=== PATIENT | female | born 2000 | race Caucasian/White ===

== ENCOUNTER 2024-09-30 16:35 | Inpatient (IN) ==
--- NOTE | 2024-09-30 16:56 | Emergency Department Note ---
Impression & Plan Depression with suicidal ideation, Superficial abrasion ED Provider Note NAME: DANIEL CARDENAS AGE: 24 SEX: F : 2000 ARRIVES VIA: Ambulance INFORMANT: Patient, ED PROVIDER(S): Corey Peter DO CHIEF COMPLAINT: Mental health evaluation HPI: The patient is a 24-year-old female who presented to the emergency department directly from her therapist office. The patient has been having problems with depression as well as suicidal ideation recently. She voiced some suicidal ideation to her therapist last week. She contracted for safety. Over the weekend she had some issues. She did make a suicide letter and had a plan to overdose on pills. She did not do that but she also did not call crisis. Because of this her therapist sent her to the emergency department for further evaluation. The patient's been having some problems with cutting as well over the last 48 hours. At this time she states she still has thoughts of hurting himself but states that she feels safe. The patient denies having any fever or cough. She denies having any nausea or vomiting. ROS: See above HPI for pertinent positives & negatives. A total of 10 systems reviewed and were otherwise negative. PAST MEDICAL HISTORY: See Below PAST SURGICAL HISTORY: See Below FAMILY HISTORY: See Below SOCIAL HISTORY: See Below HOME MEDICATIONS: See Below ALLERGIES: See Below VITALS: See Below PHYSICAL EXAMINATION: GENERAL: The patient is awake and alert. She appears somewhat anxious. EYES: The conjunctivae are clear. The pupils are round and reactive. EARS, NOSE, MOUTH AND THROAT: The nose is without any evidence of any deformity. NECK: The neck is nontender and supple. RESPIRATORY: Normal respiratory effort is noted there is no evidence of wheezing rhonchi or rales CARDIOVASCULAR: Regular rate and rhythm noted there no murmurs rubs or gallops normal S1 normal S2. GASTROINTESTINAL: The abdomen is soft. Abdomen is nontender. MUSCULOSKELETAL/EXTREMITIES: There is no evidence of gross deformity full range of motion is noted in the hips and shoulders. SKIN: There are multiple linear lacerations on both upper extremities. Consistent with the patient's history of self harm. There is no full-thickness lacerations or active bleeding noted. NEUROLOGIC: Patient is awake alert and oriented x3 strength is symmetric patellar reflexes are 2+ bilaterally PSYCH: The patient makes poor eye contact. Her affect is flat. The patient continues to discuss her suicidal ideation as well as her plan. MEDICAL DECISION MAKING: The patient is a 24-year-old female who presented to the emergency department for mental health evaluation. The patient was having problems with depression as well as suicidal ideation since last week. She failed to follow her therapist plan it was sent to the emergency department for further evaluation after crisis was notified. The patient was medically cleared in the emergency department. She was reevaluated multiple times. I discussed patient's condition with the emergency department mental health case loader operator Triage Nursing notes reviewed. Prior medical records reviewed Vital Signs: reviewed and remarkable for no significant abnormalities Differential diagnosis: Mood disorder, infection, hypoglycemia, electrolyte abnormalities, cardiac sources, intracerebral event, toxicologic, trauma, neurologic, as well as other pathologies. ER treatment provided: See below Diagnostics interpreted by me: ECG: none Laboratory studies: As stated above and show below. Imaging studies: See below. Consultation(s): I discussed this case with the emergency department mental-health case loader operator. The patient was evaluated by the mental health case loader operator from 3 S. She was felt to be a good candidate for voluntary inpatient treatment. 201 paperwork was signed by myself. Past Med/Surg History Problem List (Updated 09/30/24 @ 21:48 by Corey Peter DO) Superficial abrasion (Acute) Depression with suicidal ideation (Acute) Medical History (Updated 09/30/24 @ 21:48 by Corey Peter DO) Depression Social History Smoking Status: Never smoker Preferred Language: Divehi Feels Safe at Home: Yes Gender Identity: Female Allergies Allergies Allergy/AdvReac Type Severity Reaction Status Date / Time No Known Allergies Allergy Unverified 09/30/24 17:42 Home Meds Home Medications Medication Instructions Recorded Confirmed cariprazine 3 mg capsule (Vraylar) 3 mg PO HS 09/30/24 09/30/24 lithium carbonate 300 mg 300 mg PO HS 09/30/24 09/30/24 tablet,extended release topiramate 100 mg tablet 100 mg PO HS 09/30/24 09/30/24 Results & Data (ED) Vital Signs Vital Signs - 24 hr 09/30/24 16:35 09/30/24 18:50 09/30/24 21:45 Temperature 36.8 C Temperature Source Oral Pulse Rate 92 H Pulse Rate [Left Finger] 87 67 Pulse Rhythm [Left Finger] Regular Pulse Strength [Left Finger] Normal Respiratory Rate 20 20 16 Respiratory Effort / Characteristics Non-Labored Spontaneous Non-Labored Spontaneous Respiratory Depth Normal Normal Respiratory Pattern Regular Regular Blood Pressure 157/106 H Blood Pressure [Left Arm] 137/85 146/88 H Blood Pressure Mean 123 Blood Pressure Mean [Left Arm] 102 107 Blood Pressure Position [Left Arm] Sitting Pulse Oximetry 97 100 99 Oxygen Delivery Method Room Air Room Air Sepsis Recent Fever Within 48 Hours No Sepsis New/Unexplained Change in Mental Status N/A Sepsis Action Taken by Nursing No Action Required Home Medications Current Medication List: was personally reviewed by me Laboratory Data Attestation: I reviewed the patient's lab results. 09/30/24 17:19 09/30/24 17:19 Lab Results 09/30/24 09/30/24 09/30/24 Range/Units 16:54 17:19 Unknown WBC 10.17 (4.8-10.8) K/ul RBC 5.03 (4.20-5.40) M/uL Hgb 14.2 (12.0-16.0) g/dl Hct 42.3 (37.0-47.0) % MCV 84.1 (80.0-100.0) fL MCH 28.2 (25.0-34.0) pg MCHC 33.6 (32.0-36.0) g/dL RDW Std Deviation 38.6 (36.4-46.3) fL RDW Coeff of Kallie 12.7 (11.5-14.5) % Plt Count 327 (130-400) K/uL MPV 9.9 (9.4-12.4) fL Immature Gran % (Auto) 0.2 % Neut % (Auto) 80.5 % Lymph % (Auto) 14.8 % [place] % (Auto) 4.1 % Eos % (Auto) 0.2 % Baso % (Auto) 0.2 % Neut # (Auto) 8.18 H (1.40-6.50) K/uL Lymph # (Auto) 1.51 (1.20-3.40) K/uL [place] # (Auto) 0.42 (0.11-0.59) K/uL Eos # (Auto) 0.02 (0.00-0.50) K/uL Baso # (Auto) 0.02 (0.00-0.20) K/uL Immature Gran # (Auto) 0.02 (0.01-0.20) K/uL Sodium 139 (136-145) mmol/L Potassium 4.1 (3.5-5.1) mmol/L Chloride 106 (98-107) mmol/L Carbon Dioxide 28 (21-32) mmol/L Anion Gap 5 (3-11) BUN 9 (6-23) mg/dl Creatinine 0.69 (0.6-1.2) mg/dl Est Cr Clr Drug Dosing 145.5 ml/min eGFR 125.76 BUN/Creatinine Ratio 13.0 (10-20) Glucose 104 H (70-99(Fasting)) mg/dl Calcium 9.3 (8.6-10.3) mg/dl Total Bilirubin 0.3 (0.2-1.0) mg/dl AST 13 (13-39) U/L ALT 16 (7-52) U/L Alkaline Phosphatase 56 (34-104) U/L Total Protein 7.5 (6.0-8.3) gm/dl Albumin 4.3 (3.4-5.0) gm/dl Globulin 3.2 (2.5-4.0) gm/dl Albumin/Globulin Ratio 1.3 (0.9-2) TSH 1.756 (0.300-4.500) uIu/ml HCG, Qual Negative (Negative) Urine Color Yellow Urine Appearance Clear (Clear) Urine pH 6.5 (4.5-7.5) Ur Specific [place] 1.020 (1.000-1.030) Urine Protein Negative (Negative) Urine Glucose (UA) Negative (Negative) Urine Ketones Negative (Negative) Urine Blood Trace-intact H (Negative) Urine Nitrite Negative (Negative) Urine Bilirubin Negative (Negative) Urine Urobilinogen Negative (Negative) Ur Leukocyte Esterase Trace H (Negative) Urine RBC 0-2 (0-2) /hpf Urine WBC 6-10 H (0-5) /hpf Ur Epithelial Cells >20 H (0-2) /hpf Urine Bacteria 1+ H (None Seen) Salicylates < 3.0 L (3.0-30) mg/dl Urine Opiates Screen Neg (Neg) Ur Methadone, Qual Neg (Neg) Urine Fentanyl Screen Neg (Neg) Acetaminophen < 3 L (10-30) ug/ml Urine Barbiturates Neg (Neg) Ur Phencyclidine (PCP) Neg (Neg) U Amphetamin/Meth Scrn Neg (Neg) MDMA (Ecstasy) Screen Neg (Neg) U Benzodiazepines Scrn Neg (Neg) [place] < 0.1 L (0.6-1.2) mmol/L Ur Cocaine Metabolite Neg (Neg) U Marijuana (THC) Screen Neg (Neg) Ethyl Alcohol mg/dL < 10.0 (<10.0) mg/dl SARS-CoV-2, RNA, NAAT NEGATIVE (NEGATIVE) Administered Medications Discontinued Medications Acetaminophen (Acetaminophen 325 Mg Tab) 650 mg PO NOW STA Stop: 09/30/24 21:52 Last Admin: 09/30/24 22:03 Dose: 650 mg Documented By: NRB Discharge Plan Visit Data Chief Complaint: Mental Health Evaluation ED Provider: Corey Peter Discharge Problem: Depression with suicidal ideation, Superficial abrasion Patient Disposition: Transfer Behavioral Health Fac Forms Stand Alone Forms: My [facility], Suicide Prevention Resources Prescriptions Prescriptions: No Action lithium carbonate 300 mg tablet extended release 300 mg PO HS topiramate 100 mg tablet 100 mg PO HS Vraylar 3 mg capsule 3 mg PO HS Referrals Referrals: [facility] [Non-Staff] -
[2024-09-30 17:12] LABS: Appearance Urine Clear (Clear); Bilirubin Urine Negative (Negative); Blood Urine Trace-intact (Negative); Color Urine Yellow; Glucose Urine UA Negative (Negative); Ketones Urine Negative (Negative); Leukocyte Esterase Urine Trace (Negative); Nitrite Urine Negative (Negative); Protein Urine Negative (Negative); Urobilinogen Urine Negative (Negative); pH Urine 6.5 (4.5-7.5)
[2024-09-30 17:33] LABS: Epithelial Cell Urine >20 /hpf (0-2)
[2024-09-30 17:34] LABS: Bacteria Urine 1+ (None Seen); RBC Urine 0-2 /hpf (0-2)
[2024-09-30 17:35] LABS: Basophils # (auto) 0.02 K/uL (0.00-0.20); Basophils % (auto) 0.2 %; Eosinophils # (auto) 0.02 K/uL (0.00-0.50); Eosinophils % (auto) 0.2 %; Hematocrit (blood only) 42.3 % (37.0-47.0); Hemoglobin 14.2 g/dl (12.0-16.0); Immature Granulocytes # (auto) 0.02 K/uL (0.01-0.20); Immature Granulocytes % (auto) 0.2 %; Lymphocytes # (auto) 1.51 K/uL (1.20-3.40); Lymphocytes % (auto) 14.8 %; Mean Corpuscular Hemoglobin 28.2 pg (25.0-34.0); Mean Corpuscular Hgb Conc 33.6 g/dL (32.0-36.0); Mean Corpuscular Volume 84.1 fL (80.0-100.0); Mean Platelet Volume 9.9 fL (9.4-12.4); Monocytes # (auto) 0.42 K/uL (0.11-0.59); Monocytes % (auto) 4.1 %; Neutrophils # (auto) 8.18 K/uL (1.40-6.50); Neutrophils % (auto) 80.5 %; Platelet Count 327 K/uL (130-400); RDW Coefficient of Variation 12.7 % (11.5-14.5); RDW Standard Deviation 38.6 fL (36.4-46.3); Red Blood Count 5.03 M/uL (4.20-5.40); White Blood Count 10.17 K/ul (4.8-10.8)
[2024-09-30 17:40] LABS: Amphetamines+Metham, Urine Neg (Neg); Barbiturates, Urine Neg (Neg); Benzodiazepine, Urine Neg (Neg); Cocaine, Urine Neg (Neg); Fentanyl, Urine Neg (Neg); MDMA (Ecstacy), Urine Neg (Neg); Marijuana, Urine Neg (Neg); Methadone, Urine Neg (Neg); Opiate, Urine Neg (Neg); Phencyclidine, Urine Neg (Neg)
[2024-09-30 17:52] LABS: Albumin Globulin Ratio 1.3 (0.9-2); Albumin Level 4.3 gm/dl (3.4-5.0); Bilirubin,Total 0.3 mg/dl (0.2-1.0); Calcium 9.3 mg/dl (8.6-10.3); Creatinine Clr Calc Pharmacy 145.5 ml/min; Globulin 3.2 gm/dl (2.5-4.0); Potassium 4.1 mmol/L (3.5-5.1); Total Protein 7.5 gm/dl (6.0-8.3)
[2024-09-30 17:55] LABS: Pregnancy Test, Serum Negative (Negative)
[2024-09-30 17:59] LABS: Lithium < 0.1 mmol/L (0.6-1.2)
[2024-09-30 18:03] LABS: Acetaminophen < 3 ug/ml (10-30); Salicylate < 3.0 mg/dl (3.0-30)
[2024-09-30 18:06] LABS: Thyroid Stimulating Hormone 1.756 uIu/ml (0.300-4.500)
[2024-09-30] MEDS: ACETAMINOPHEN 325 MG TAB PO STA (22:03)
[2024-10-01] MEDS ORDERED: ALUMINUM/MAGNESIUM SUSP 30 ML UDC PO PRN (01:36)
[2024-10-01] MEDS ORDERED: ACETAMINOPHEN 325 MG TAB PO PRN (01:36)
[2024-10-01] MEDS ORDERED: BISMUTH SUBSALICYLATE 262 MG CHEW PO PRN (01:36)
[2024-10-01] MEDS ORDERED: MAGNESIUM HYDROXIDE SUSP 30 ML UDC PO PRN (01:36)
[2024-10-01] MEDS ORDERED: SODIUM CHLORIDE 0.65% NA SOLN 45 ML (OCEAN) PRN (01:36)
[2024-10-01] MEDS: hydrOXYzine HCl 25 MG TAB PO PRN (01:54)
--- NOTE | 2024-10-01 09:08 | History & Physical ---
Date of Service October 01, 2024 Impression / Recommendations Impression KRISTOPHER CARDENAS is a 24-year-old woman who currently lives in [place] with her uncle, has a history of borderline personality disorder, depression, anxiety, PTSD, bipolar disorder and disordered eating, and was admitted on 10/01/24 00:57 on a 201 voluntary commitment for SI via overdose [place] a secluded [place]. Diagnostically consistent with major depressive disorder vs bipolar affective disorder current depressive episode (but less likely given no consistent history of loida/hypomania) as well as eating disorder binge/purge and restricting pattern and borderline personality disorder and PTSD by history. Discussed medication treatment options in detail. Discussed risks, benefits and alternatives. She wants to continue with Topimax for mood stabilization and off- label to reduce risk for antipsychotic-induced weight gain, [place] for depression augmentation and mood stabilization and Vraylar for mood stabilization. She consents to starting clonidine for off-label use for insomnia/PTSD symptoms and anxiety. She will consider options for depression treatment including fluoxetine vs Cymbalta vs Trintellix. Wellbutrin contraindicated given her history of binge-purging which increases risk for seizures. Reviewed side effects including but not limited to: low BP/syncope with clonidine; sedation with Topimax; movement (TD, NMS), cardiac (QTc prolongation), and metabolic (stroke, insulin resistance) and necessity for fasting lipid and glucose labwork and AIMS done with score of 0 with Vraylar and TSH, Cr, electrolytes, LFTs, CBC with platelets reviewied for ongoing use of [place] and reviewed risks of dehydration, renal, thyroid, cardiac, drug interactions (NSAIDs, ACEIs, angiotensin receptor antagonists, risks). MNPR-malodorous; encourage shower and self-care & nystatin powder ordered Overall I spent a total of 80 minutes for this admission including review of chart records, review of labwork, direct evaluation of the patient, counseling the patient, ordering medication, risk assessment, discussion with the psychiatric liason RN and documentation in the electronic health record. (1) Depression with suicidal ideation: (2) Borderline personality disorder: (3) Bipolar disorder: (4) Eating disorder, unspecified: (5) Post traumatic stress disorder (PTSD): (6) GERMAINE (generalized anxiety disorder): Plan 10/01/2024: The patient was admitted to the [facility] (locked inpatient mental health unit) on q15 min checks (behavioral with suicide precautions) for safety. The patient will participate in group, recreational, and milieu therapies and will be offered additional individual and family sessions as clinically appropriate. -Start clonidine 0.1mg HS -Continue prior to admission medications: * [place] carbonate SR 300mg HS * Vraylar 3mg HS (consider dose increase) * Topamax 100mg HS (consider dose increase) -Consider SSRI vs SNRI vs Trintellix vs optimization of doses of current medications after review of symptom questionnaires -Counter Pocket Sewer consult due to pattern of restriction and binge/purging -Symptom Questionnaires: Mood Disorder Q, Alejandra BPD, GERMAINE-7, PHQ-9, VICTORIA Inventory Assets Strengths: supportive relationships, willing to get treatment Needs: safety and stabilization, medication adjustment, additional coping skills, increased outpatient services Suicide Risk Level Suicide Risk Level: High-Moderate (q15 min suicide checks) (Si with plan and intent prior to admission and depression symptoms, but feels safe in the hospital and feels able to alert staff if she needs more support) Risk Factors Assessment Male: No : Yes Do You Have Access To A Gun?: No Health Problems: No Mental Health Diagnoses: Yes Substance Use Disorders: No Previous Attempt: Yes Family History of Suicide: Yes Previous Psychiatric Hospitalization: Yes Hopelessness: Yes Protective Factors Assessment Employed: Yes Good Rapport with Provider: Yes Psychiatric History Identifying Data KRISTOPHER CARDENAS is a 24-year-old woman who currently lives in [place] with her uncle, has a history of borderline personality disorder, depression, anxiety, PTSD, bipolar disorder and disordered eating, and was admitted on 10/01/24 00:57 on a 201 voluntary commitment for SI via overdose on a secluded trail. Chief Complaint "I had set a date to for my birthday but decided to move it up". History of Present Illness Kristopher presents for psychiatric admission at the recommendation of her outpatient therapist for worsening depression and suicidal ideation with plan and intent to take an overdose of old prescriptions on a secluded trail near her old home where she is confident she would not be found for a long time. She had planned to this past weekend but then stayed alive due to "promising my therapist I would keep trying to live". When she saw her therapist on Monday she told her "I didn't know how much more I could take". Her therapist then told her she needed to the go to the hospital and "I had no choice, otherwise she said she'd 302 me". She reports a long history of self-harm via cutting but this has escalated recently to the point that while cutting this weekend she felt ambivalent about the risk of cutting too deep and possibly dying. She reports some stressors including the recent of her uncle's mother two weeks ago, a long work commute, and longstanding mental health challenges but denies any specific precipitants to her increased SI in the last few days. She reports a worsening of depressive symptoms over the past 2 weeks, She has been experiencing significant difficulty with motivation and low energy, causing her to miss work recently and has not been attending to self-care/hygiene. She's been isolating and reports anhedonia, hopelessness, helplessness, poor sleep, low appetite (hardly eating) and low self-worth. She has a long history of chronic intermittent SI for "as long as I can remember" but this also intensified over the last 2-3 days to the point she felt she would act on her plan and "moved it up" from previously wanting to on her birthday in the fall. She also reports longstanding difficulties with eating and appetite, stating she has struggled with eating since elementary school due to bullying and body image issues. She often restricts and will sometimes purge after eating. She endorses anxiety symptoms including panic attacks and severe functional anxiety. She also reports symptoms consistent with PTSD. She is currently prescribed Vraylar, Topamax, and [place] (300mg). She reports that the medications are not particularly helpful but possibly help a bit with her mood. She's been on them all for at least 2-3 months. A higher dose of Lit hium (900mg) previously caused increased aggression and lethargy so she is unwilling to make any dose adjustments to this. She has tried numerous medications in the past, including Zoloft, Lexapro, Effexor, Cymbalta, and Wellbutrin, but does not recall their effectiveness/side effects or why they were stopped. Psychiatric ROS notable for possible history of hypomania but seems like potentially more consistent with borderline personality disorder with mood lability. Denies any history of psychosis, OCD. No current symptoms of loida or psychosis reported. Past Psychiatric History Current Psychiatric Diagnosis: Bipolar, PTSD, Depression, Anxiety, Borderline Personality Disorder Outpatient Services: [facility] for therapy CM via [facility] Previous Psych Admissions: [facility] in Jul 2024 Do You Have Access To A Gun?: No History of Previous Suicide Attempt: Yes (10-11 prior attempt) Describe Attempts in the Past: most recently in Jul 2024 attempted to jump from bridge Past Medication Trials: Depakote Zoloft Trazodone Buspar Tegretol Wellbutrin Latuda Doxepin Prazosin Naltrexone -hx Seroquel (anaphylaxis) Past Head Trauma/Neuro History History of Concussion/Seizure: No Allergies Allergy/AdvReac Type Severity Reaction Status Date / Time quetiapine [From Seroquel] Allergy Severe Anaphylaxis Unverified 10/01/24 05:42 Influenza Virus Vaccines Allergy Mild Hives Unverified 10/01/24 05:42 Home Medications Medication Instructions Recorded Confirmed Type cariprazine 3 mg capsule (Vraylar) 3 mg PO HS 09/30/24 09/30/24 History lithium carbonate 300 mg 300 mg PO HS 09/30/24 09/30/24 History tablet,extended release topiramate 100 mg tablet 100 mg PO HS 09/30/24 09/30/24 History Family History Family History of: Depression, Anxiety and Suicide Completion (cousin) Family Mental Health History Comment: Mom- depression, anxiety Alcohol History Hx of Alcohol Use Over the Past 12 Months: No (2x per year. 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 Marital Status: Single Beliefs That Will Affect Care: None Current Legal Problems: No Hx Legal Problems: No Hx Traumatic Life Events: Yes Patient History Medical History Depression Social History Smoking Status: Never smoker Preferred Language: Icelandic Communication Ability: Effective Bridge Welder Required: No Beliefs That Will Affect Care: None Feels Safe at Home: Yes Gender Identity: Female Assistive Devices: Glasses Review of Systems Review of Systems: All systems reviewed & are unremarkable except as noted in HPI & below Physical Exam Psychiatric: Orientation: alert and oriented x 3 Apperance: appropriately dressed and + disheveled (malodorous ) Eye Contact: + fair eye contact Motor Behavior: no abnormal motor movements Speech: normal rate/rhythm/volume of speech (brief) Affect: + depressed affect and + blunted affect Mood: + depressed mood and + anxious mood Thought Process: goal directed thought process and + concrete thought process Thought Content: reality based without delusions, + hopelessness and + loneliness Suicidal Thoughts: denies suicidal intent; + reports suicidal thoughts and + reports suicidal plan (none for hospital) Homicidal Thoughts: denies homicidal thoughts Hallucinations: no auditory hallucinations and no visual hallucinations Cognition: recent memory grossly intact, remote memory grossly intact, attention grossly intact and language grossly intact Estimated Intelligence: consistent with education level Insight: + limited insight Judgment: + fair judgement Vital Signs (Past 24 Hours): Last Vital Signs Temp 36.8 C 10/01/24 03:34 Pulse 75 10/01/24 03:34 Resp 20 10/01/24 03:34 BP 147/85 H 10/01/24 03:34 Pulse Ox 99 10/01/24 03:34 O2 Del Method Room Air 10/01/24 03:34 Exam Statement: A physical exam was performed in the ED by Dr. Peter for the purposes of medical clearance. I accept that physical as correct and adequate for the purposes of the inpatient physical exam. Results & Data ([facility]) Laboratory Results Laboratory Results - last 24 hr 09/30/24 09/30/24 09/30/24 16:54 17:19 Unknown WBC 10.17 RBC 5.03 Hgb 14.2 Hct 42.3 MCV 84.1 MCH 28.2 MCHC 33.6 RDW Std Deviation 38.6 RDW Coeff of Kallie 12.7 Plt Count 327 MPV 9.9 Immature Gran % (Auto) 0.2 Neut % (Auto) 80.5 Lymph % (Auto) 14.8 Gray % (Auto) 4.1 Eos % (Auto) 0.2 Baso % (Auto) 0.2 Neut # (Auto) 8.18 H Lymph # (Auto) 1.51 Gray # (Auto) 0.42 Eos # (Auto) 0.02 Baso # (Auto) 0.02 Immature Gran # (Auto) 0.02 Sodium 139 Potassium 4.1 Chloride 106 Carbon Dioxide 28 Anion Gap 5 BUN 9 Creatinine 0.69 Est Cr Clr Drug Dosing 145.5 eGFR 125.76 BUN/Creatinine Ratio 13.0 Glucose 104 H Calcium 9.3 Total Bilirubin 0.3 AST 13 ALT 16 Alkaline Phosphatase 56 Total Protein 7.5 Albumin 4.3 Globulin 3.2 Albumin/Globulin Ratio 1.3 TSH 1.756 HCG, Qual Negative Urine Color Yellow Urine Appearance Clear Urine pH 6.5 Ur Specific [place] 1.020 Urine Protein Negative Urine Glucose (UA) Negative Urine Ketones Negative Urine Blood Trace-intact H Urine Nitrite Negative Urine Bilirubin Negative Urine Urobilinogen Negative Ur Leukocyte Esterase Trace H Urine RBC 0-2 Urine WBC 6-10 H Ur Epithelial Cells >20 H Urine Bacteria 1+ H Salicylates < 3.0 L Urine Opiates Screen Neg Ur Methadone, Qual Neg Urine Fentanyl Screen Neg Acetaminophen < 3 L Urine Barbiturates Neg Ur Phencyclidine (PCP) Neg U Amphetamin/Meth Scrn Neg MDMA (Ecstasy) Screen Neg U Benzodiazepines Scrn Neg [place] < 0.1 L Ur Cocaine Metabolite Neg U Marijuana (THC) Screen Neg Ethyl Alcohol mg/dL < 10.0 SARS-CoV-2, RNA, NAAT NEGATIVE Current Inpatient Medications Current Inpatient Medications: Current Inpatient Medications Acetaminophen (Acetaminophen 325 Mg Tab) 650 mg PO Q4H PRN PRN Reason: Headache or Minor Fever Stop: 10/31/24 01:35 Al Hydrox/Mg Hydrox/Simethicone (Aluminum/Magnesium Susp 30 Ml Udc) 30 ml PO Q4H PRN PRN Reason: GI Upset Stop: 10/31/24 01:35 Bismuth Subsalicylate (Bismuth Subsalicylate 262 Mg Chew) 2 tab PO Q30M PRN PRN Reason: Loose Stool/Diarrhea Stop: 10/31/24 01:35 Hydroxyzine HCl (Hydroxyzine Hcl 25 Mg Tab) 50 mg PO HSZ PRN PRN Reason: Insomnia Stop: 10/31/24 01:35 Last Admin: 10/01/24 01:54 Dose: 50 mg Hydroxyzine HCl (Hydroxyzine Hcl 25 Mg Tab) 25 mg PO Q4H PRN PRN Reason: Anxiety Stop: 10/31/24 01:35 [place] Carbonate ([place] Carbonate Slow Rel 300 Mg Tab) 300 mg PO HS MARCEL Stop: 10/31/24 21:59 Magnesium Hydroxide (Magnesium Hydroxide Susp 30 Ml Udc) 30 ml PO DAILY PRN PRN Reason: Constipation Stop: 10/31/24 01:35 Olanzapine (Olanzapine 2.5 Mg Tab) 2.5 mg PO BID PRN PRN Reason: Agitation Stop: 10/31/24 08:59 Sodium Chloride (Sodium Chloride 0.65% Na Soln 45 Ml (Colt)) 1 - 2 sprays NA PRN PRN PRN Reason: Nasal Dryness/Congestion Stop: 10/31/24 01:35 Topiramate (Topiramate 100 Mg Tab) 100 mg PO HS MARCEL Stop: 10/31/24 21:59
[2024-10-01] MEDS ORDERED: NYSTATIN POWDER 15GM BTL EXT PRN (14:16)
[2024-10-01] MEDS: TOPIRAMATE 100 MG TAB PO SCH (21:00)
[2024-10-01] MEDS: CARIPRAZINE HCL 3 MG CAP PO SCH (21:00)
[2024-10-01] MEDS: LITHIUM CARBONATE SLOW REL 300 MG TAB PO SCH (21:01)
[2024-10-01] MEDS: cloNIDine HCL 0.1 MG TAB PO SCH (21:01)
[2024-10-01] MEDS ORDERED: LITHIUM CARBONATE SLOW REL 300 MG TAB PO SCH (22:00)
[2024-10-01] MEDS ORDERED: TOPIRAMATE 100 MG TAB PO SCH (22:00)
[2024-10-02 07:50] LABS: Estimated Average Glucose 103 mg/dl; Hemoglobin A1C 5.2 % (4.5-5.6)
[2024-10-02 08:07] LABS: Chol HDL Ratio 6.6 (0-5)
--- NOTE | 2024-10-02 09:14 | Psychiatric Progress Note ---
Date of Service October 02, 2024 Impression / Recommendations Impression DANIEL CARDENAS is a 24-year-old woman who currently lives in [place] with her uncle, has a history of borderline personality disorder, depression, anxiety, PTSD, bipolar disorder and disordered eating, and was admitted on 10/01/24 00:57 on a 201 voluntary commitment for SI via overdose [place] secluded [place]. Diagnostically consistent with major depressive disorder vs bipolar affective disorder current depressive episode (but less likely given no consistent history of loida/hypomania) as well as eating disorder binge/purge and restricting pattern and borderline personality disorder and PTSD by history. A: Ongoing depression but some lessening of SI today. She notes prominent irritability as part of her symptoms. Not eating. Ongoing behavioral activation encouragement. Discussed medication treatment options in detail. Discussed risks, benefits and alternatives. She wants to start fluoxetine. Reviewed side effects including but not limited to: GI, TIERNEY, sexual side effects, and counseled on black box warning of potential for emergence of or increased SI and need to let staff know should this occur or should they feel unsafe. Also discussed importance of seeking emergency care following discharge if this side effect occurs in the future. Labwork reviewed, notable for elevated cholesterol and low Vit D. She consents to starting supplementation. [place] level low but expected due to low dose. MNPR-requiring safety linens Overall, I spent a total of 50 minutes on this case including meeting with the patient, reviewing the chart, nursing report, multidisciplinary team meeting, orders, and documentation. (1) Depression with suicidal ideation: (2) Borderline personality disorder: (3) Bipolar disorder: (4) Eating disorder, unspecified: (5) Post traumatic stress disorder (PTSD): (6) GERMAINE (generalized anxiety disorder): Plan 10/02/2024: -Start fluoxetine 10mg daily 10/01/2024: The patient was admitted to the [facility] ([facility] health unit) on q15 min checks (behavioral with suicide precautions) for safety. The patient will participate in group, recreational, and milieu therapies and will be offered additional individual and family sessions as clinically appropriate. -Start clonidine 0.1mg HS -Continue prior to admission medications: * [place] carbonate SR 300mg HS * Vraylar 3mg HS (consider dose increase) * Topamax 100mg HS (consider dose increase) -Consider SSRI vs SNRI vs Trintellix vs optimization of doses of current medications after review of symptom questionnaires -Baffle Mounter consult due to pattern of restriction and binge/purging -Symptom Questionnaires: Mood Disorder Q, Alejandra BPD, GERMAINE-7, PHQ-9, VICTORIA Inventory Assets Strengths: supportive relationships, willing to get treatment Needs: safety and stabilization, medication adjustment, additional coping skills, increased outpatient services Suicide Risk Level Suicide Risk Level: High-Moderate (q15 min suicide checks) (Si with plan and intent prior to admission and depression symptoms, but feels safe in the hospital and feels able to alert staff if she needs more support) Risk Factors Assessment Male: No : Yes Do You Have Access To A Gun?: No Health Problems: No Mental Health Diagnoses: Yes Substance Use Disorders: No Previous Attempt: Yes Family History of Suicide: Yes Previous Psychiatric Hospitalization: Yes Hopelessness: Yes Protective Factors Assessment Employed: Yes Good Rapport with Provider: Yes Interval History Identifying Information DANIEL CARDENAS is a 24-year-old woman who currently lives in [place] with her uncle, has a history of borderline personality disorder, depression, anxiety, PTSD, bipolar disorder and disordered eating, and was admitted on 10/01/24 00:57 on a 201 voluntary commitment for SI via overdose on a secluded trail. Chief Complaint "Ok, I've been sleeping". Review of Systems Sleep Information Total Hours of Sleep: 6.5 Sleep Comments: Meal Information Percent Meal Consumed - Breakfast: 0 Percent Meal Consumed - Lunch: 0 Percent Meal Consumed - Dinner: 0 Nutrition Comment: pt. declines Subjective Subjective Patient was seen & assessed and interval progress reviewed with treatment team. In bed all day, wouldn't come out for meals. Last evening told RN she felt unsafe having her linens so now has safety linens and safety smock. Today able to transition back to normal linens and clothes. Reports her SI is less intense today still present but "I can control them". Discussed medication options and she would like to start fluoxetine. Reviewed elevated cholesterol and low Vit D. She hasn't eaten anything today but will try to eat dinner. Slept well. Fairly isolative to her room. States she continues to have a lot of "irritability and annoyance" which is atypical for her. Physical Exam Psychiatric Orientation: alert and oriented x 3 Apperance: appropriately dressed Eye Contact: + fair eye contact Motor Behavior: no abnormal motor movements Speech: normal rate/rhythm/volume of speech (brief) Affect: + depressed affect and + blunted affect Mood: + depressed mood and + anxious mood Thought Process: goal directed thought process and + concrete thought process Thought Content: reality based without delusions, + hopelessness and + loneliness Suicidal Thoughts: denies suicidal intent; + reports suicidal thoughts and + reports suicidal plan (none for hospital) Homicidal Thoughts: denies homicidal thoughts Hallucinations: no auditory hallucinations and no visual hallucinations Cognition: recent memory grossly intact, remote memory grossly intact, attention grossly intact and language grossly intact Estimated Intelligence: consistent with education level Insight: + limited insight Judgment: + fair judgement Vital Signs (Past 24 Hours) Last Vital Signs Temp 36.9 C 10/02/24 06:24 Pulse 76 10/02/24 06:24 Resp 16 10/02/24 06:24 BP 109/76 10/02/24 06:24 Pulse Ox 98 10/01/24 22:45 O2 Del Method Room Air 10/01/24 22:45 Results & Data ([facility]) Laboratory Results Laboratory Results - last 24 hr 10/02/24 06:57 Estimat Average Glucose 103 Hemoglobin A1c 5.2 Triglycerides 137 Cholesterol 232 H LDL Cholesterol, Calc 170 VLDL Cholesterol, Calc 27 HDL Cholesterol 35 Cholesterol/HDL Ratio 6.6 H 25-OH Vitamin D Total 20.2 L [place] Pending Current Inpatient Medications Current Inpatient Medications: Current Inpatient Medications Acetaminophen (Acetaminophen 325 Mg Tab) 650 mg PO Q4H PRN PRN Reason: Headache or Minor Fever Stop: 10/31/24 01:35 Al Hydrox/Mg Hydrox/Simethicone (Aluminum/Magnesium Susp 30 Ml Udc) 30 ml PO Q4H PRN PRN Reason: GI Upset Stop: 10/31/24 01:35 Bismuth Subsalicylate (Bismuth Subsalicylate 262 Mg Chew) 2 tab PO Q30M PRN PRN Reason: Loose Stool/Diarrhea Stop: 10/31/24 01:35 Cariprazine (Cariprazine Hcl 3 Mg Cap) 3 mg PO HS MARCEL Stop: 10/31/24 21:59 Last Admin: 10/01/24 21:00 Dose: 3 mg Clonidine HCl (Clonidine Hcl 0.1 Mg Tab) 0.1 mg PO HS MARCEL Stop: 10/31/24 21:59 Last Admin: 10/01/24 21:01 Dose: 0.1 mg Hydroxyzine HCl (Hydroxyzine Hcl 25 Mg Tab) 50 mg PO HSZ PRN PRN Reason: Insomnia Stop: 10/31/24 01:35 Last Admin: 10/01/24 01:54 Dose: 50 mg Hydroxyzine HCl (Hydroxyzine Hcl 25 Mg Tab) 25 mg PO Q4H PRN PRN Reason: Anxiety Stop: 10/31/24 01:35 [place] Carbonate ([place] Carbonate Slow Rel 300 Mg Tab) 300 mg PO HS MARCEL Stop: 10/31/24 21:59 Last Admin: 10/01/24 21:01 Dose: 300 mg Magnesium Hydroxide (Magnesium Hydroxide Susp 30 Ml Udc) 30 ml PO DAILY PRN PRN Reason: Constipation Stop: 10/31/24 01:35 Nystatin (Nystatin Powder 15gm Btl) 1 appln EXT BID PRN PRN Reason: itching/redness of skin Stop: 10/31/24 14:15 Olanzapine (Olanzapine 2.5 Mg Tab) 2.5 mg PO BID PRN PRN Reason: Agitation Stop: 10/31/24 08:59 Sodium Chloride (Sodium Chloride 0.65% Na Soln 45 Ml ([place])) 1 - 2 sprays NA PRN PRN PRN Reason: Nasal Dryness/Congestion Stop: 10/31/24 01:35 Topiramate (Topiramate 100 Mg Tab) 100 mg PO HS MARCEL Stop: 10/31/24 21:59 Last Admin: 10/01/24 21:00 Dose: 100 mg Mental Health & Subst Abuse Tx Therapist Name of Therapist: [facility] Post Discharge Appointments Contact Information Discharge Discharge Address: [address] [place] [address] [address], [place] [address]
[2024-10-02] MEDS: FLUoxetine HCL 10 MG CAP PO SCH (17:41)
[2024-10-02] MEDS: OLANZAPINE 2.5 MG TAB PO PRN (21:37)
--- NOTE | 2024-10-03 08:54 | Psychiatric Progress Note ---
Date of Service October 03, 2024 Impression / Recommendations Impression DANIEL CARDENAS is a 24-year-old woman who currently lives in [place] with her uncle, has a history of borderline personality disorder, depression, anxiety, PTSD, bipolar disorder and disordered eating, and was admitted on 10/01/24 00:57 on a 201 voluntary commitment for SI via overdose on a secluded trail. Diagnostically consistent with major depressive disorder vs bipolar affective disorder current depressive episode (but less likely given no consistent history of loida/hypomania) as well as eating disorder binge/purge and restricting pattern and borderline personality disorder and PTSD by history. A: Ongoing depression with hopelessness but starting to isolate less and SI more controllable during the day, worsens in the evenings. Seems yesterday was potentially prompted by feelings of low self-worth and body dysmorphia after eating some dinner. She is agreeable to switching Vraylar dosing to be with dinner to see if this lessens evening distress. She also consents to titration of fluoxetine. Appreciate washer meat consult and recommendation for outpatient nutrition counseling for disordered eating. Reviewed outpatient records, may benefit from restarting naltrexone for self- harm urges once her eating improves and GI symptoms lessen.Has been on higher doses of Vraylar recently (including 4.5mg HS) MNPR-easily overwhelmed at times, requiring safety linens at times Overall, I spent a total of 50 minutes on this case including meeting with the patient, reviewing the chart, nursing report, multidisciplinary team meeting, orders, and documentation. (1) Depression with suicidal ideation: (2) Borderline personality disorder: (3) Bipolar disorder: (4) Eating disorder, unspecified: (5) Post traumatic stress disorder (PTSD): (6) GERMAINE (generalized anxiety disorder): Plan 10/03/2024: -Increase fluoxetine to 20mg daily -Adjust dosing of Vraylar to daily with dinner 10/02/2024: -Start fluoxetine 10mg daily 10/01/2024: The patient was admitted to the [facility] ([facility] unit) on q15 min checks (behavioral with suicide precautions) for safety. The patient will participate in group, recreational, and milieu therapies and will be offered additional individual and family sessions as clinically appropriate. -Start clonidine 0.1mg HS -Continue prior to admission medications: * [place] carbonate SR 300mg HS * Vraylar 3mg HS (consider dose increase) * Topamax 100mg HS (consider dose increase) -Consider SSRI vs SNRI vs Trintellix vs optimization of doses of current medications after review of symptom questionnaires -Supervisor Soldering consult due to pattern of restriction and binge/purging -Symptom Questionnaires: Mood Disorder Q, Alejandra BPD, GERMAINE-7, PHQ-9, VICTORIA Inventory Assets Strengths: supportive relationships, willing to get treatment Needs: safety and stabilization, medication adjustment, additional coping skills, increased outpatient services Suicide Risk Level Suicide Risk Level: High-Moderate (q15 min suicide checks) (Si with plan and intent prior to admission and depression symptoms, but feels safe in the hospital and feels able to alert staff if she needs more support) Risk Factors Assessment Male: No : Yes Do You Have Access To A Gun?: No Health Problems: No Mental Health Diagnoses: Yes Substance Use Disorders: No Previous Attempt: Yes Family History of Suicide: Yes Previous Psychiatric Hospitalization: Yes Hopelessness: Yes Protective Factors Assessment Employed: Yes Good Rapport with Provider: Yes Interval History Identifying Information DANIEL CARDENAS is a 24-year-old woman who currently lives in [place] with her uncle, has a history of borderline personality disorder, depression, anxiety, PTSD, bipolar disorder and disordered eating, and was admitted on 10/01/24 00:57 on a 201 voluntary commitment for SI via overdose on [place] secluded trail. Chief Complaint "I shouldn't have ate". Review of Systems Sleep Information Total Hours of Sleep: 6.75 Meal Information Percent Meal Consumed - Breakfast: 0 Percent Meal Consumed - Lunch: 0 Percent Meal Consumed - Dinner: 25 Nutrition Comment: Subjective Subjective Patient was seen & assessed and interval progress reviewed with nursing and social work. Attended one group yesterday, ended up eating dinner with peers, did a puzzle with peers. But later on the floor of her room reporting that her medications "aren't lasting long enough" and got prn dose of olanzapine which she found effective. Today she reports ongoing negative internal thoughts about her self-image which intensify after she eats. She met with washer meat and is going to try to eat at every meal. She denies any medication side effects. Increased SI intensity in the evenings and then she will often isolate. Last night she was able to come out of her room and spend time with peers with staff support which helped her. Prior to that she was having intensifying SI and self-harm urges. Today SI present but "manageable". Attending groups today. Slightly more affect. Physical Exam Psychiatric Orientation: alert and oriented x 3 Apperance: appropriately dressed Eye Contact: + fair eye contact Motor Behavior: no abnormal motor movements Speech: normal rate/rhythm/volume of speech Affect: + depressed affect and + blunted affect Mood: + depressed mood and + anxious mood Thought Process: goal directed thought process and + concrete thought process Thought Content: reality based without delusions, + hopelessness, + worthlessness, + loneliness and + self deprecation Suicidal Thoughts: denies suicidal intent; + reports suicidal thoughts and + reports suicidal plan (none for hospital) Homicidal Thoughts: denies homicidal thoughts Hallucinations: no auditory hallucinations and no visual hallucinations Cognition: recent memory grossly intact, remote memory grossly intact, attention grossly intact and language grossly intact Estimated Intelligence: consistent with education level Insight: + limited insight Judgment: + limited judgement Vital Signs (Past 24 Hours) Last Vital Signs Temp 36.9 C 10/02/24 06:24 Pulse 91 H 10/02/24 20:08 Resp 17 10/02/24 20:07 BP 129/88 10/02/24 20:08 Pulse Ox 99 10/02/24 20:07 O2 Del Method Room Air 10/02/24 20:07 Results & Data ([facility]) Laboratory Results Laboratory Results - last 24 hr 10/02/24 06:57 [place] 0.2 L Current Inpatient Medications Current Inpatient Medications: Current Inpatient Medications Acetaminophen (Acetaminophen 325 Mg Tab) 650 mg PO Q4H PRN PRN Reason: Headache or Minor Fever Stop: 10/31/24 01:35 Al Hydrox/Mg Hydrox/Simethicone (Aluminum/Magnesium Susp 30 Ml Udc) 30 ml PO Q4H PRN PRN Reason: GI Upset Stop: 10/31/24 01:35 Bismuth Subsalicylate (Bismuth Subsalicylate 262 Mg Chew) 2 tab PO Q30M PRN PRN Reason: Loose Stool/Diarrhea Stop: 10/31/24 01:35 Cariprazine (Cariprazine Hcl 3 Mg Cap) 3 mg PO HS MARCEL Stop: 10/31/24 21:59 Last Admin: 10/02/24 20:39 Dose: 3 mg Clonidine HCl (Clonidine Hcl 0.1 Mg Tab) 0.1 mg PO HS MARCEL Stop: 10/31/24 21:59 Last Admin: 10/02/24 20:39 Dose: 0.1 mg Fluoxetine HCl (Fluoxetine Hcl 10 Mg Cap) 10 mg PO QAM MARCEL Stop: 11/01/24 16:59 Last Admin: 10/02/24 17:41 Dose: 10 mg Hydroxyzine HCl (Hydroxyzine Hcl 25 Mg Tab) 50 mg PO HSZ PRN PRN Reason: Insomnia Stop: 10/31/24 01:35 Last Admin: 10/01/24 01:54 Dose: 50 mg Hydroxyzine HCl (Hydroxyzine Hcl 25 Mg Tab) 25 mg PO Q4H PRN PRN Reason: Anxiety Stop: 10/31/24 01:35 [place] Carbonate ([place] Carbonate Slow Rel 300 Mg Tab) 300 mg PO HS MARCEL Stop: 10/31/24 21:59 Last Admin: 10/02/24 20:39 Dose: 300 mg Magnesium Hydroxide (Magnesium Hydroxide Susp 30 Ml Udc) 30 ml PO DAILY PRN PRN Reason: Constipation Stop: 10/31/24 01:35 Multivitamins/Minerals (Cerovite Adv Formula Tab) 1 tab PO QAM MARCEL Stop: 11/02/24 08:59 Nystatin (Nystatin Powder 15gm Btl) 1 appln EXT BID PRN PRN Reason: itching/redness of skin Stop: 10/31/24 14:15 Olanzapine (Olanzapine 2.5 Mg Tab) 2.5 mg PO BID PRN PRN Reason: Agitation Stop: 10/31/24 08:59 Last Admin: 10/02/24 21:37 Dose: 2.5 mg Sodium Chloride (Sodium Chloride 0.65% Na Soln 45 Ml ([place])) 1 - 2 sprays NA PRN PRN PRN Reason: Nasal Dryness/Congestion Stop: 10/31/24 01:35 Topiramate (Topiramate 100 Mg Tab) 100 mg PO HS MARCEL Stop: 10/31/24 21:59 Last Admin: 10/02/24 20:39 Dose: 100 mg Vitamin D (Cholecalciferol 25 Mcg (1000 Units) Tab) 25 mcg PO QAM MARCEL Stop: 11/02/24 08:59 Mental Health & Subst Abuse Tx Psychiatrist Name of Psychiatrist: [facility] Date Of Appointment With Psychiatric Provider: 10/09/2024 Time of Appointment with Psychiatrist: 11:15 Psychiatric Appointment Comment: Appt from 10/03 rescheduled to 10/09 Therapist Name of Therapist: [facility] in [place] Therapist's Date of Therapist Appointment: 10/07 Time of Therapist Appointment: 11:15am Ct Scan Technician Name of Ct Scan Technician: Cameron Snowden Phone Number for Ct Scan Technician: Post Discharge Appointments Primary Care Physician Name Of Family Doctor/PCP: Maureen Hess Provider Appointment Comment: Not needed at this time. Follow up as normal Contact Information Discharge Discharge Address: [facility] [address], [place] [address]
[2024-10-03] MEDS: CEROVITE ADV FORMULA TAB PO SCH (10:04)
[2024-10-03] MEDS: CHOLECALCIFEROL 25 MCG (1000 UNITS) TAB PO SCH (10:04)
[2024-10-03] MEDS: CARIPRAZINE HCL 3 MG CAP PO SCH (17:11)
[2024-10-03] MEDS: hydrOXYzine HCl 25 MG TAB PO PRN (18:18)
[2024-10-04] MEDS: FLUoxetine HCL 20 MG CAP PO SCH (08:54)
--- NOTE | 2024-10-04 09:13 | Psychiatric Progress Note ---
Date of Service October 04, 2024 Impression / Recommendations Impression DANIEL CARDENAS is a 24-year-old woman who currently lives in [place] with her uncle, has a history of borderline personality disorder, depression, anxiety, PTSD, bipolar disorder and disordered eating, and was admitted on 10/01/24 00:57 on a 201 voluntary commitment for SI via overdose [place] secluded [place]. Diagnostically consistent with major depressive disorder vs bipolar affective disorder current depressive episode (but less likely given no consistent history of loida/hypomania) as well as eating disorder binge/purge and restricting pattern and borderline personality disorder and PTSD by history. A: Ongoing depression and SI with some self-harm last evening but responds well to therapeutic interventions and attempts to use coping skills. Tolerating fluoxetine. She consents to increasing Vraylar to further target depression and as off-label use for augmentation. Ongoing behavioral activation. Eating more, may benefit from eating disorder treatment once mood symptoms are more stable. Overall, I spent a total of 35 minutes on this case including meeting with the patient, reviewing the chart, nursing report, multidisciplinary team meeting, orders, and documentation. (1) Depression with suicidal ideation: (2) Borderline personality disorder: (3) Bipolar disorder: (4) Eating disorder, unspecified: (5) Post traumatic stress disorder (PTSD): (6) GERMAINE (generalized anxiety disorder): Plan 10/04/2024: -Increase Vraylar to 4.5mg daily with dinner 10/03/2024: -Increase fluoxetine to 20mg daily -Adjust dosing of Vraylar to 3mg daily with dinner 10/02/2024: -Start fluoxetine 10mg daily 10/01/2024: The patient was admitted to the [facility] ([facility]) on q15 min checks (behavioral with suicide precautions) for safety. The patient will participate in group, recreational, and milieu therapies and will be offered additional individual and family sessions as clinically appropriate. -Start clonidine 0.1mg HS -Continue prior to admission medications: * Rangeley carbonate SR 300mg HS * Vraylar 3mg HS (consider dose increase) * Topamax 100mg HS (consider dose increase) -Consider SSRI vs SNRI vs Trintellix vs optimization of doses of current medications after review of symptom questionnaires -Manager Special Events consult due to pattern of restriction and binge/purging -Symptom Questionnaires: Mood Disorder Q, Alejandra BPD, GERMAINE-7, PHQ-9, VICTORIA Inventory Assets Strengths: supportive relationships, willing to get treatment Needs: safety and stabilization, medication adjustment, additional coping skills, increased outpatient services Suicide Risk Level Suicide Risk Level: High-Moderate (q15 min suicide checks) (Si with plan and intent prior to admission and depression symptoms, but feels safe in the hospital and feels able to alert staff if she needs more support) Risk Factors Assessment Male: No : Yes Do You Have Access To A Gun?: No Health Problems: No Mental Health Diagnoses: Yes Substance Use Disorders: No Previous Attempt: Yes Family History of Suicide: Yes Previous Psychiatric Hospitalization: Yes Hopelessness: Yes Protective Factors Assessment Employed: Yes Good Rapport with Provider: Yes Interval History Identifying Information DANIEL CARDENAS is a 24-year-old woman who currently lives in [place] with her uncle, has a history of borderline personality disorder, depression, anxiety, PTSD, bipolar disorder and disordered eating, and was admitted on 10/01/24 00:57 on a 201 voluntary commitment for SI via overdose on a secluded trail. Chief Complaint "good". Review of Systems Sleep Information Total Hours of Sleep: 6 Meal Information Percent Meal Consumed - Breakfast: 0 Percent Meal Consumed - Lunch: 25 Percent Meal Consumed - Dinner: 80 Subjective Subjective Patient was seen & assessed and interval progress reviewed with treatment team. Ate more dinner, had increased anxiety last evening and walked with counselor and then journaled. She did self-harm via scratching prior to this. Attended some groups and rated mood as "tired". Today reports her mood as "good". Struggled again last night despite early dosing of Vraylar. No side effects from fluoxetine addition. Had night terror last night and didn't sleep very well though cites fire alarm drills as potentially contributing. Eating more. SI rated as "manageable". Spending more time around peers and attending groups. Physical Exam Psychiatric Orientation: alert and oriented x 3 Apperance: appropriately dressed Eye Contact: + fair eye contact Motor Behavior: no abnormal motor movements Speech: normal rate/rhythm/volume of speech Affect: + depressed affect and + constricted affect Mood: + depressed mood and + anxious mood Thought Process: goal directed thought process Thought Content: reality based without delusions, + hopelessness, + wo rthlessness, + loneliness and + self deprecation Suicidal Thoughts: denies suicidal intent; + reports suicidal thoughts and + reports suicidal plan (none for hospital) Homicidal Thoughts: denies homicidal thoughts Hallucinations: no auditory hallucinations and no visual hallucinations Cognition: recent memory grossly intact, remote memory grossly intact, attention grossly intact and language grossly intact Estimated Intelligence: consistent with education level Insight: + limited insight Judgment: + limited judgement Vital Signs (Past 24 Hours) Last Vital Signs Temp 36.9 C 10/04/24 05:57 Pulse 65 10/04/24 05:58 Resp 17 10/04/24 05:57 BP 126/88 10/04/24 05:58 Pulse Ox 100 10/04/24 05:57 O2 Del Method Room Air 10/04/24 05:57 Results & Data ([facility]) Current Inpatient Medications Current Inpatient Medications: Current Inpatient Medications Acetaminophen (Acetaminophen 325 Mg Tab) 650 mg PO Q4H PRN PRN Reason: Headache or Minor Fever Stop: 10/31/24 01:35 Al Hydrox/Mg Hydrox/Simethicone (Aluminum/Magnesium Susp 30 Ml Udc) 30 ml PO Q4H PRN PRN Reason: GI Upset Stop: 10/31/24 01:35 Bismuth Subsalicylate (Bismuth Subsalicylate 262 Mg Chew) 2 tab PO Q30M PRN PRN Reason: Loose Stool/Diarrhea Stop: 10/31/24 01:35 Cariprazine (Cariprazine Hcl 3 Mg Cap) 3 mg PO DAILYBD [facility] Stop: 11/02/24 17:14 Last Admin: 10/03/24 17:11 Dose: 3 mg Clonidine HCl (Clonidine Hcl 0.1 Mg Tab) 0.1 mg PO HS [facility] Stop: 10/31/24 21:59 Last Admin: 10/03/24 21:30 Dose: 0.1 mg Fluoxetine HCl (Fluoxetine Hcl 20 Mg Cap) 20 mg PO QAM [facility] Stop: 11/03/24 08:59 Hydroxyzine HCl (Hydroxyzine Hcl 25 Mg Tab) 50 mg PO HSZ PRN PRN Reason: Insomnia Stop: 10/31/24 01:35 Last Admin: 10/01/24 01:54 Dose: 50 mg Hydroxyzine HCl (Hydroxyzine Hcl 25 Mg Tab) 25 mg PO Q4H PRN PRN Reason: Anxiety Stop: 10/31/24 01:35 Last Admin: 10/03/24 18:18 Dose: 25 mg [place]ley Carbonate ([place] Carbonate Slow Rel 300 Mg Tab) 300 mg PO HS [facility] Stop: 10/31/24 21:59 Last Admin: 10/03/24 21:30 Dose: 300 mg Magnesium Hydroxide (Magnesium Hydroxide Susp 30 Ml Udc) 30 ml PO DAILY PRN PRN Reason: Constipation Stop: 10/31/24 01:35 Multivitamins/Minerals (Cerovite Adv Formula Tab) 1 tab PO QAM [facility] Stop: 11/02/24 08:59 Last Admin: 10/03/24 10:04 Dose: 1 tab Nystatin (Nystatin Powder 15gm Btl) 1 appln EXT BID PRN PRN Reason: itching/redness of skin Stop: 10/31/24 14:15 Olanzapine (Olanzapine 2.5 Mg Tab) 2.5 mg PO BID PRN PRN Reason: Agitation Stop: 10/31/24 08:59 Last Admin: 10/02/24 21:37 Dose: 2.5 mg Sodium Chloride (Sodium Chloride 0.65% Na Soln 45 Ml ([place])) 1 - 2 sprays NA PRN PRN PRN Reason: Nasal Dryness/Congestion Stop: 10/31/24 01:35 Topiramate (Topiramate 100 Mg Tab) 100 mg PO HS [facility] Stop: 10/31/24 21:59 Last Admin: 10/03/24 21:30 Dose: 100 mg Vitamin D (Cholecalciferol 25 Mcg (1000 Units) Tab) 25 mcg PO QAM [facility] Stop: 11/02/24 08:59 Last Admin: 10/03/24 10:04 Dose: 25 mcg Mental Health & Subst Abuse Tx Psychiatrist Name of Psychiatrist: Trae Psychiatrist's Date Of Appointment With Psychiatric Provider: 10/09/2024 Time of Appointment with Psychiatrist: 11:15 Psychiatric Appointment Comment: Appt from 10/03 rescheduled to 10/09 Therapist Name of Therapist: [facility] in [place] Therapist's Date of Therapist Appointment: 10/07 Time of Therapist Appointment: 11:15am Reservoir Engineering Consultant Name of Reservoir Engineering Consultant: Cameron Snowden Phone Number for Reservoir Engineering Consultant: Post Discharge Appointments Primary Care Physician Name Of Family Doctor/PCP: Maureen Hess Provider Appointment Comment: Not needed at this time. Follow up as normal Contact Information Discharge Discharge Address: [id number] [place] [address] [place], [place] [address]
[2024-10-04] MEDS: CARIPRAZINE HCL 1.5 MG CAP PO SCH (17:26)
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
[2024-10-06] MEDS: FLUoxetine HCL 20 MG CAP PO SCH (08:54)
--- NOTE | 2024-10-06 14:58 | Psychiatric Progress Note ---
Date of Service October 06, 2024 Impression / Recommendations Impression DANIEL CARDENAS is a 24-year-old woman who currently lives in [place] with her uncle, has a history of borderline personality disorder, depression, anxiety, PTSD, bipolar disorder and disordered eating, and was admitted on 10/01/24 00:57 on a 201 voluntary commitment for SI via overdose on a secluded [place]. Diagnostically consistent with major depressive disorder vs bipolar affective disorder current depressive episode (but less likely given no consistent history of loida/hypomania) as well as eating disorder binge/purge and restricting pattern and borderline personality disorder and PTSD by history. A: Ongoing depression and SI and panic attack last evening. Possibly some fatigue today related to increased dose of fluoxetine. Some lessening of SI today but she prefers to keep the safety linens for another day to ensure she continues to feel safe. MNPR due to safety linens Overall, I spent a total of 35 minutes on this case including meeting with the patient, reviewing the chart, nursing report, multidisciplinary team meeting, orders, and documentation. (1) Depression with suicidal ideation: (2) Borderline personality disorder: (3) Bipolar disorder: (4) Eating disorder, unspecified: (5) Post traumatic stress disorder (PTSD): (6) GERMAINE (generalized anxiety disorder): Plan 10/06/2024: -Continue current medications and tx plan 10/05/2024: -Increase fluoxetine to 40mg daily -Utilize safety linens 10/04/2024: -Increase Vraylar to 4.5mg daily with dinner 10/03/2024: -Increase fluoxetine to 20mg daily -Adjust dosing of Vraylar to 3mg daily with dinner 10/02/2024: -Start fluoxetine 10mg daily 10/01/2024: The patient was admitted to the [facility] ([facility] mental health unit) on q15 min checks (behavioral with suicide precautions) for safety. The patient will participate in group, recreational, and milieu therapies and will be offered additional individual and family sessions as clinically appropriate. -Start clonidine 0.1mg HS -Continue prior to admission medications: * [place] carbonate SR 300mg HS * Vraylar 3mg HS (consider dose increase) * Topamax 100mg HS (consider dose increase) -Consider SSRI vs SNRI vs Trintellix vs optimization of doses of current medications after review of symptom questionnaires -Metal Loader consult due to pattern of restriction and binge/purging -Symptom Questionnaires: Mood Disorder Q, Alejandra BPD, GERMAINE-7, PHQ-9, VICTORIA Inventory Assets Strengths: supportive relationships, willing to get treatment Needs: safety and stabilization, medication adjustment, additional coping skills, increased outpatient services Suicide Risk Level Suicide Risk Level: High-Moderate (q15 min suicide checks) (SI with plan and intent prior to admission and depression symptoms, but feels safe in the hospit al and finds safety linens helpful when SI intensifies, feels able to alert staff if she needs more support and has hopefulness things can improve and change) Risk Factors Assessment Male: No : Yes Do You Have Access To A Gun?: No Health Problems: No Mental Health Diagnoses: Yes Substance Use Disorders: No Previous Attempt: Yes Family History of Suicide: Yes Previous Psychiatric Hospitalization: Yes Hopelessness: Yes Protective Factors Assessment Employed: Yes Good Rapport with Provider: Yes Interval History Identifying Information DANIEL CARDENAS is a 24-year-old woman who currently lives in [place] with her uncle, has a history of borderline personality disorder, depression, anxiety, PTSD, bipolar disorder and disordered eating, and was admitted on 10/01/24 00:57 on a 201 voluntary commitment for SI via overdose on a secluded trail. Chief Complaint "Tired". Review of Systems Sleep Information Total Hours of Sleep: 7.5 Meal Information Percent Meal Consumed - Breakfast: 0 Percent Meal Consumed - Lunch: 90 Percent Meal Consumed - Dinner: 10 Nutrition Comment: pt. declined Subjective Subjective Patient was seen & assessed and interval progress reviewed with nursing. [place] safer with safe linens, had 1-on-1 with counselor last evening. Had panic attack later in the evening, she could not identify any triggers but managed to work through it without "ending up on the floor" which sometimes happens with intense panic attacks. Did not eat much dinner last evening. Slept well overnight. Today her SI is "better actually" which she attributes to staying busy by attending all the morning groups and "not so much time to think" about it. Feels "tired", she's not sure why. No other side effects to higher dose of fluoxetine. Physical Exam Psychiatric Orientation: alert and oriented x 3 Apperance: appropriately dressed Eye Contact: + fair eye contact Motor Behavior: no abnormal motor movements Speech: normal rate/rhythm/volume of speech Affect: + depressed affect and + constricted affect Mood: + depressed mood and + anxious mood Thought Process: goal directed thought process Thought Content: reality based without delusions, + hopelessness, + worthlessness and + guilt Suicidal Thoughts: denies suicidal intent; + reports suicidal thoughts and + reports suicidal plan (none for hospital) Homicidal Thoughts: denies homicidal thoughts Hallucinations: no auditory hallucinations and no visual hallucinations Cognition: recent memory grossly intact, remote memory grossly intact, attention grossly intact and language grossly intact Estimated Intelligence: consistent with education level Insight: + limited insight Judgment: + fair judgement Vital Signs (Past 24 Hours) Last Vital Signs Temp 36.5 C 10/06/24 06:33 Pulse 65 10/06/24 06:34 Resp 16 10/06/24 06:33 BP 112/78 10/06/24 06:34 Pulse Ox 100 10/04/24 05:57 O2 Del Method Room Air 10/04/24 05:57 Results & Data ([facility]) Current Inpatient Medications Current Inpatient Medications: Current Inpatient Medications Acetaminophen (Acetaminophen 325 Mg Tab) 650 mg PO Q4H PRN PRN Reason: Headache or Minor Fever Stop: 10/31/24 01:35 Al Hydrox/Mg Hydrox/Simethicone (Aluminum/Magnesium Susp 30 Ml Udc) 30 ml PO Q4H PRN PRN Reason: GI Upset Stop: 10/31/24 01:35 Bismuth Subsalicylate (Bismuth Subsalicylate 262 Mg Chew) 2 tab PO Q30M PRN PRN Reason: Loose Stool/Diarrhea Stop: 10/31/24 01:35 Cariprazine (Cariprazine Hcl 1.5 Mg Cap) 4.5 mg PO DAILYBD MARCEL Stop: 11/03/24 17:14 Last Admin: 10/05/24 17:26 Dose: 4.5 mg Clonidine HCl (Clonidine Hcl 0.1 Mg Tab) 0.1 mg PO HS MARCEL Stop: 10/31/24 21:59 Last Admin: 10/05/24 21:09 Dose: 0.1 mg Fluoxetine HCl (Fluoxetine Hcl 20 Mg Cap) 40 mg PO QAM MARCEL Stop: 11/05/24 08:59 Last Admin: 10/06/24 08:54 Dose: 40 mg Hydroxyzine HCl (Hydroxyzine Hcl 25 Mg Tab) 50 mg PO HSZ PRN PRN Reason: Insomnia Stop: 10/31/24 01:35 Last Admin: 10/01/24 01:54 Dose: 50 mg Hydroxyzine HCl (Hydroxyzine Hcl 25 Mg Tab) 25 mg PO Q4H PRN PRN Reason: Anxiety Stop: 10/31/24 01:35 Last Admin: 10/05/24 20:37 Dose: 25 mg [place] Carbonate ([place] Carbonate Slow Rel 300 Mg Tab) 300 mg PO HS MARCEL Stop: 10/31/24 21:59 Last Admin: 10/05/24 21:09 Dose: 300 mg Magnesium Hydroxide (Magnesium Hydroxide Susp 30 Ml Udc) 30 ml PO DAILY PRN PRN Reason: Constipation Stop: 10/31/24 01:35 Multivitamins/Minerals (Cerovite Adv Formula Tab) 1 tab PO QAM MARCEL Stop: 11/02/24 08:59 Last Admin: 10/06/24 08:54 Dose: 1 tab Nystatin (Nystatin Powder 15gm Btl) 1 appln EXT BID PRN PRN Reason: itching/redness of skin Stop: 10/31/24 14:15 Olanzapine (Olanzapine 2.5 Mg Tab) 2.5 mg PO BID PRN PRN Reason: Agitation Stop: 10/31/24 08:59 Last Admin: 10/02/24 21:37 Dose: 2.5 mg Sodium Chloride (Sodium Chloride 0.65% Na Soln 45 Ml ([place])) 1 - 2 sprays NA PRN PRN PRN Reason: Nasal Dryness/Congestion Stop: 10/31/24 01:35 Topiramate (Topiramate 100 Mg Tab) 100 mg PO HS MARCEL Stop: 10/31/24 21:59 Last Admin: 10/05/24 21:09 Dose: 100 mg Vitamin D (Cholecalciferol 25 Mcg (1000 Units) Tab) 25 mcg PO QAM MARCEL Stop: 11/02/24 08:59 Last Admin: 10/06/24 08:54 Dose: 25 mcg Mental Health & Subst Abuse Tx Psychiatrist Name of Psychiatrist: Trae Psychiatrist's Date Of Appointment With Psychiatric Provider: 10/09/2024 Time of Appointment with Psychiatrist: 11:15 Psychiatric Appointment Comment: Appt from 10/03 rescheduled to 4/23 Therapist Name of Therapist: [facility] in [place]ahlia Santamaria Therapist's Date of Therapist Appointment: 10/07 Time of Therapist Appointment: 11:15am Section Plotter Operator Name of Section Plotter Operator: Cameron Snowden Phone Number for Section Plotter Operator: Post Discharge Appointments Primary Care Physician Name Of Family Doctor/PCP: Maureen Hess Provider Appointment Comment: Not needed at this time. Follow up as normal Contact Information Discharge Discharge Address: [facility] [address], [place] [address]
--- NOTE | 2024-10-07 09:24 | Psychiatric Progress Note ---
Date of Service October 07, 2024 Impression / Recommendations Impression DANIEL CARDENAS is a 24-year-old woman who currently lives in [place] with her uncle, has a history of borderline personality disorder, depression, anxiety, PTSD, bipolar disorder and disordered eating, and was admitted on 10/01/24 00:57 on a 201 voluntary commitment for SI via overdose [place] secluded [place]. Diagnostically consistent with major depressive disorder vs bipolar affective disorder current depressive episode (but less likely given no consistent history of loida/hypomania) as well as eating disorder binge/purge and restricting pattern and borderline personality disorder and PTSD by history. A: Ongoing depression and SI and another panic attack last evening. Increased SI today so will continue with safety linens per her preference. Reviewed option for quiet room or additional safety adjustments if needed which she remains willing to let staff know if she feels she needs or if SI intensifies. Tolerating medication changes. Discussed option to trial slightly higher dose of clonidine at HS for nightmares and insomnia. Discussed risks/benefits again including potential for syncope/low BP. She would like to try the higher dose of clonidine. Discussed DBT and CBT strategies to cope with periods of increased distress and ways to try substituting coping thoughts. MNPR due to safety linens Overall, I spent a total of 50 minutes on this case including meeting with the patient, reviewing the chart, nursing report, multidisciplinary team meeting, orders, and documentation. (1) Depression with suicidal ideation: (2) Borderline personality disorder: (3) Bipolar disorder: (4) Eating disorder, unspecified: (5) Post traumatic stress disorder (PTSD): (6) GERMAINE (generalized anxiety disorder): Plan 10/07/2024: -Increase clonidine to 0.2mg HS 10/06/2024: -Continue current medications and tx plan 10/05/2024: -Increase fluoxetine to 40mg daily -Utilize safety linens 10/04/2024: -Increase Vraylar to 4.5mg daily with dinner 10/03/2024: -Increase fluoxetine to 20mg daily -Adjust dosing of Vraylar to 3mg daily with dinner 10/02/2024: -Start fluoxetine 10mg daily 10/01/2024: The patient was admitted to the [facility] ([facility] mental health unit) on q15 min checks (behavioral with suicide precautions) for safety. The patient will participate in group, recreational, and milieu therapies and will be offered additional individual and family sessions as clinically appropriate. -Start clonidine 0.1mg HS -Continue prior to admission medications: * [place] carbonate SR 300mg HS * Vraylar 3mg HS (consider dose increase) * Topamax 100mg HS (consider dose increase) -Consider SSRI vs SNRI vs Trintellix vs optimization of doses of current medications after review of symptom questionnaires -Teletypewriter Operator consult due to pattern of restriction and binge/purging -Symptom Questionnaires: Mood Disorder Q, Alejandra BPD, GERMAINE-7, PHQ-9, VICTORIA Inventory Assets Strengths: supportive relationships, willing to get treatment Needs: safety and stabilization, medication adjustment, additional coping skills, increased outpatient services Suicide Risk Level Suicide Risk Level: High-Moderate (q15 min suicide checks) (SI with plan and intent prior to admission and depression symptoms, but feels safe in the hospital and finds safety linens helpful when SI intensifies, feels able to alert staff if she needs more support and has hopefulness things can improve and change) Risk Factors Assessment Male: No : Yes Do You Have Access To A Gun?: No Health Problems: No Mental Health Diagnoses: Yes Substance Use Disorders: No Previous Attempt: Yes Family History of Suicide: Yes Previous Psychiatric Hospitalization: Yes Hopelessness: Yes Protective Factors Assessment Employed: Yes Good Rapport with Provider: Yes Interval History Identifying Information DANIEL CARDENAS is a 24-year-old woman who currently lives in [place] with her uncle, has a history of borderline personality disorder, depression, anxiety, PTSD, bipolar disorder and disordered eating, and was admitted on 10/01/24 00:57 on a 201 voluntary commitment for SI via overdose on a secluded trail. Chief Complaint "Ehh". Review of Systems Sleep Information Total Hours of Sleep: 6.5 Meal Information Percent Meal Consumed - Breakfast: 0 Percent Meal Consumed - Lunch: 90 Percent Meal Consumed - Dinner: 10 Nutrition Comment: Subjective Subjective Patient was seen & assessed and interval progress reviewed with treatment team. Journaling, attending groups, had a panic attack last night after security advisor came up to get something for another patient. Had some overnight awakenings and nightmares last night. Today she reports worsened mood due to increased hopelessness. She is tearful asking "Am I ever going to get better?". Ongoing SI and continues to require safety linens due thinking about possible plans. Processed ways to challenge suicidal thoughts and ways to try to cope with mood fluctuations throughout the day. She remains motivated to try different strategies for self-harm urges like holding ice, walking, journaling or showering. Was able to pick some menu selections for the first time today after meeting with the weeder. Physical Exam Psychiatric Orientation: alert and oriented x 3 Apperance: appropriately dressed Eye Contact: + fair eye contact Motor Behavior: no abnormal motor movements Speech: normal rate/rhythm/volume of speech Affect: + depressed affect and + tearful affect Mood: + depressed mood and + anxious mood Thought Process: goal directed thought process Thought Content: reality based without delusions, + hopelessness, + worthlessness and + guilt Suicidal Thoughts: denies suicidal intent; + reports suicidal thoughts and + reports suicidal plan (none for hospital but at times wonders about hanging herself ) Homicidal Thoughts: denies homicidal thoughts Hallucinations: no auditory hallucinations and no visual hallucinations Cognition: recent memory grossly intact, remote memory grossly intact, attention grossly intact and language grossly intact Estimated Intelligence: consistent with education level Insight: + limited insight Judgment: + fair judgement Vital Signs (Past 24 Hours) Last Vital Signs Temp 36.6 C 10/07/24 06:37 Pulse 55 L 10/07/24 06:42 Resp 16 10/07/24 06:37 BP 120/83 10/07/24 06:42 Pulse Ox 100 10/04/24 05:57 O2 Del Method Room Air 10/04/24 05:57 Results & Data ([facility]) Current Inpatient Medications Current Inpatient Medications: Current Inpatient Medications Acetaminophen (Acetaminophen 325 Mg Tab) 650 mg PO Q4H PRN PRN Reason: Headache or Minor Fever Stop: 10/31/24 01:35 Al Hydrox/Mg Hydrox/Simethicone (Aluminum/Magnesium Susp 30 Ml Udc) 30 ml PO Q4H PRN PRN Reason: GI Upset Stop: 10/31/24 01:35 Bismuth Subsalicylate (Bismuth Subsalicylate 262 Mg Chew) 2 tab PO Q30M PRN PRN Reason: Loose Stool/Diarrhea Stop: 10/31/24 01:35 Cariprazine (Cariprazine Hcl 1.5 Mg Cap) 4.5 mg PO DAILYBD MARCEL Stop: 11/03/24 17:14 Last Admin: 10/06/24 17:19 Dose: 4.5 mg Clonidine HCl (Clonidine Hcl 0.1 Mg Tab) 0.1 mg PO HS MARCEL Stop: 10/31/24 21:59 Last Admin: 10/06/24 21:44 Dose: 0.1 mg Fluoxetine HCl (Fluoxetine Hcl 20 Mg Cap) 40 mg PO QAM MARCEL Stop: 11/05/24 08:59 Last Admin: 10/07/24 09:14 Dose: 40 mg Hydroxyzine HCl (Hydroxyzine Hcl 25 Mg Tab) 50 mg PO HSZ PRN PRN Reason: Insomnia Stop: 10/31/24 01:35 Last Admin: 10/01/24 01:54 Dose: 50 mg Hydroxyzine HCl (Hydroxyzine Hcl 25 Mg Tab) 25 mg PO Q4H PRN PRN Reason: Anxiety Stop: 10/31/24 01:35 Last Admin: 10/05/24 20:37 Dose: 25 mg [place] Carbonate ([place] Carbonate Slow Rel 300 Mg Tab) 300 mg PO HS MARCEL Stop: 10/31/24 21:59 Last Admin: 10/06/24 21:44 Dose: 300 mg Magnesium Hydroxide (Magnesium Hydroxide Susp 30 Ml Udc) 30 ml PO DAILY PRN PRN Reason: Constipation Stop: 10/31/24 01:35 Multivitamins/Minerals (Cerovite Adv Formula Tab) 1 tab PO QAM MARCEL Stop: 11/02/24 08:59 Last Admin: 10/07/24 09:14 Dose: 1 tab Nystatin (Nystatin Powder 15gm Btl) 1 appln EXT BID PRN PRN Reason: itching/redness of skin Stop: 10/31/24 14:15 Olanzapine (Olanzapine 2.5 Mg Tab) 2.5 mg PO BID PRN PRN Reason: Agitation Stop: 10/31/24 08:59 Last Admin: 10/02/24 21:37 Dose: 2.5 mg Sodium Chloride (Sodium Chloride 0.65% Na Soln 45 Ml ([place])) 1 - 2 sprays NA PRN PRN PRN Reason: Nasal Dryness/Congestion Stop: 10/31/24 01:35 Topiramate (Topiramate 100 Mg Tab) 100 mg PO HS MARCEL Stop: 10/31/24 21:59 Last Admin: 10/06/24 21:44 Dose: 100 mg Vitamin D (Cholecalciferol 25 Mcg (1000 Units) Tab) 25 mcg PO QAM MARCEL Stop: 11/02/24 08:59 Last Admin: 10/07/24 09:14 Dose: 25 mcg Mental Health & Subst Abuse Tx Psychiatrist Name of Psychiatrist: Trae Psychiatrist's Date Of Appointment With Psychiatric Provider: 10/09/2024 Time of Appointment with Psychiatrist: 11:15 Psychiatric Appointment Comment: Appt from 10/03 rescheduled to 10/09 Therapist Name of Therapist: [facility] in [place] Santam[place] Therapist's Date of Therapist Appointment: 10/07 Time of Therapist Appointment: 11:15am Customer Service Operator Name of Customer Service Operator: Cameron Snowden Phone Number for Customer Service Operator: Post Discharge Appointments Primary Care Physician Name Of Family Doctor/PCP: Maureen Hess Provider Appointment Comment: Not needed at this time. Follow up as normal Contact Information Discharge Discharge Address: [address] [place] [address] [address] [place], [place] [id number]
[2024-10-07] MEDS: cloNIDine HCL 0.1 MG TAB PO SCH (21:14)
--- NOTE | 2024-10-08 09:15 | Psychiatric Progress Note ---
Date of Service October 08, 2024 Impression / Recommendations Impression DANIEL CARDENAS is a 24-year-old woman who currently lives in [place] with her uncle, has a history of borderline personality disorder, depression, anxiety, PTSD, bipolar disorder and disordered eating, and was admitted on 10/01/24 00:57 on a 201 voluntary commitment for SI via overdose on a secluded [place]. Diagnostically consistent with major depressive disorder vs bipolar affective disorder current depressive episode (but less likely given no consistent history of loida/hypomania) as well as eating disorder binge/purge and restricting pattern and borderline personality disorder and PTSD by history. A: Ongoing depression but mood showing some signs of improvement today with no SI so far this morning and agreeable to stopping safety linens. Showing slightly more affect especially around peers. Eating more consistently at lunch and dinner. Low BP and some brief dizziness with clonidine so discussed reducing dose again or trying an alternative medication but she would like to continue as she had no nightmares last night and has some lessening of anxiety today. Ongoing discussion of ways to increase hopefulness and build upon her strengths and CBT strategies to use when her mood fluctuates or she feels more overwhelmed. MNPR-will continue for now but if she is able to stay off safety linens for more than 24 hours could then discontinue Overall, I spent a total of 35 minutes on this case including meeting with the patient, reviewing the chart, nursing report, multidisciplinary team meeting, orders, and documentation. (1) Depression with suicidal ideation: (2) Borderline personality disorder: (3) Bipolar disorder: (4) Eating disorder, unspecified: (5) Post traumatic stress disorder (PTSD): (6) GERMAINE (generalized anxiety disorder): Plan 10/08/2024: -Continue current medications and tx plan 10/07/2024: -Increase clonidine to 0.2mg HS 10/06/2024: -Continue current medications and tx plan 10/05/2024: -Increase fluoxetine to 40mg daily -Utilize safety linens 10/04/2024: -Increase Vraylar to 4.5mg daily with dinner 10/03/2024: -Increase fluoxetine to 20mg daily -Adjust dosing of Vraylar to 3mg daily with dinner 10/02/2024: -Start fluoxetine 10mg daily 10/01/2024: The patient was admitted to the [facility] ([facility] mental health unit) on q15 min checks (behavioral with suicide precautions) for safety. The patient will participate in group, recreational, and milieu therapies and will be offered additional individual and family sessions as clinically appropriate. -Start clonidine 0.1mg HS -Continue prior to admission medications: * [place] carbonate SR 300mg HS * Vraylar 3mg HS (consider dose increase) * Topamax 100mg HS (consider dose increase) -Consider SSRI vs SNRI vs Trintellix vs optimization of doses of current medications after review of symptom questionnaires -Ux Interaction Designer consult due to pattern of restriction and binge/purging -Symptom Questionnaires: Mood Disorder Q, Alejandra BPD, GERMAINE-7, PHQ-9, VICTORIA Inventory Assets Strengths: supportive relationships, willing to get treatment Needs: safety and stabilization, medication adjustment, additional coping skills, increased outpatient services Suicide Risk Level Suicide Risk Level: Moderate (q15 min suicide checks) (SI with plan and intent prior to admission and depression symptoms, but mood improving today, denies SI today, feels safe in the hospital and finds safety linens helpful when SI intensifies, feels able to alert staff if she needs more support and has hopefulness things can improve and change) Risk Factors Assessment Male: No : Yes Do You Have Access To A Gun?: No Health Problems: No Mental Health Diagnoses: Yes Substance Use Disorders: No Previous Attempt: Yes Family History of Suicide: Yes Previous Psychiatric Hospitalization: Yes Hopelessness: Yes Protective Factors Assessment Employed: Yes Good Rapport with Provider: Yes Interval History Identifying Information DANIEL CARDENAS is a 24-year-old woman who currently lives in [place] with her uncle, has a history of borderline personality disorder, depression, anxiety, PTSD, bipolar disorder and disordered eating, and was admitted on 10/01/24 00:57 on a 201 voluntary commitment for SI via overdose on a secluded trail. Chief Complaint "Better". Review of Systems Sleep Information Total Hours of Sleep: 7 Meal Information Percent Meal Consumed - Breakfast: 0 Percent Meal Consumed - Lunch: 100 Percent Meal Consumed - Dinner: 50 Subjective Subjective Patient was seen & assessed and interval progress reviewed with nursing and social work. Attending groups, rated mood as "3" and tired. Today she reports her mood is "better" compared to recent days. Denies SI this morning and is agreeable to going back to regular linens. No nightmares overnight. Slight dizziness this morning but she reports it resolved quickly, she would like to continue with higher dose of clonidine. Physical Exam Psychiatric Orientation: alert and oriented x 3 Apperance: appropriately dressed Eye Contact: + fair eye contact Motor Behavior: no abnormal motor movements Speech: normal rate/rhythm/volume of speech Affect: + depressed affect (but with more affect ) Mood: + depressed mood and + anxious mood Thought Process: goal directed thought process Thought Content: reality based without delusions, + hopelessness, + worthlessness and + guilt Suicidal Thoughts: denies suicidal plan and denies suicidal intent; + reports suicidal thoughts (but less today) Homicidal Thoughts: denies homicidal thoughts Hallucinations: no auditory hallucinations and no visual hallucinations Cognition: recent memory grossly intact, remote memory grossly intact, attention grossly intact and language grossly intact Estimated Intelligence: consistent with education level Insight: + limited insight Judgment: + fair judgement Vital Signs (Past 24 Hours) Last Vital Signs Temp 36.7 C 10/08/24 06:28 Pulse 75 10/08/24 06:29 Resp 16 10/08/24 06:28 BP 91/63 L 10/08/24 06:29 Pulse Ox 100 10/04/24 05:57 O2 Del Method Room Air 10/04/24 05:57 Results & Data ([facility]) Current Inpatient Medications Current Inpatient Medications: Current Inpatient Medications Acetaminophen (Acetaminophen 325 Mg Tab) 650 mg PO Q4H PRN PRN Reason: Headache or Minor Fever Stop: 10/31/24 01:35 Al Hydrox/Mg Hydrox/Simethicone (Aluminum/Magnesium Susp 30 Ml Udc) 30 ml PO Q4H PRN PRN Reason: GI Upset Stop: 10/31/24 01:35 Bismuth Subsalicylate (Bismuth Subsalicylate 262 Mg Chew) 2 tab PO Q30M PRN PRN Reason: Loose Stool/Diarrhea Stop: 10/31/24 01:35 Cariprazine (Cariprazine Hcl 1.5 Mg Cap) 4.5 mg PO DAILYBD MARCEL Stop: 11/03/24 17:14 Last Admin: 10/07/24 17:06 Dose: 4.5 mg Clonidine HCl (Clonidine Hcl 0.1 Mg Tab) 0.2 mg PO HS MARCEL Stop: 11/06/24 21:59 Last Admin: 10/07/24 21:14 Dose: 0.2 mg Fluoxetine HCl (Fluoxetine Hcl 20 Mg Cap) 40 mg PO QAM MARCEL Stop: 11/05/24 08:59 Last Admin: 10/08/24 08:33 Dose: 40 mg Hydroxyzine HCl (Hydroxyzine Hcl 25 Mg Tab) 50 mg PO HSZ PRN PRN Reason: Insomnia Stop: 10/31/24 01:35 Last Admin: 10/01/24 01:54 Dose: 50 mg Hydroxyzine HCl (Hydroxyzine Hcl 25 Mg Tab) 25 mg PO Q4H PRN PRN Reason: Anxiety Stop: 10/31/24 01:35 Last Admin: 10/05/24 20:37 Dose: 25 mg [place] Carbonate ([place] Carbonate Slow Rel 300 Mg Tab) 300 mg PO HS MARCEL Stop: 10/31/24 21:59 Last Admin: 10/07/24 21:14 Dose: 300 mg Magnesium Hydroxide (Magnesium Hydroxide Susp 30 Ml Udc) 30 ml PO DAILY PRN PRN Reason: Constipation Stop: 10/31/24 01:35 Multivitamins/Minerals (Cerovite Adv Formula Tab) 1 tab PO QAM MARCEL Stop: 11/02/24 08:59 Last Admin: 10/08/24 08:33 Dose: 1 tab Nystatin (Nystatin Powder 15gm Btl) 1 appln EXT BID PRN PRN Reason: itching/redness of skin Stop: 10/31/24 14:15 Olanzapine (Olanzapine 2.5 Mg Tab) 2.5 mg PO BID PRN PRN Reason: Agitation Stop: 10/31/24 08:59 Last Admin: 10/02/24 21:37 Dose: 2.5 mg Sodium Chloride (Sodium Chloride 0.65% Na Soln 45 Ml ([place])) 1 - 2 sprays NA PRN PRN PRN Reason: Nasal Dryness/Congestion Stop: 10/31/24 01:35 Topiramate (Topiramate 100 Mg Tab) 100 mg PO HS MARCEL Stop: 10/31/24 21:59 Last Admin: 10/07/24 21:14 Dose: 100 mg Vitamin D (Cholecalciferol 25 Mcg (1000 Units) Tab) 25 mcg PO QAM MARCEL Stop: 11/02/24 08:59 Last Admin: 10/08/24 08:33 Dose: 25 mcg Mental Health & Subst Abuse Tx Psychiatrist Name of Psychiatrist: Trae Psychiatrist's Date Of Appointment With Psychiatric Provider: 10/14 Time of Appointment with Psychiatrist: 1:30pm Psychiatric Appointment Comment: Appt from 10/03 rescheduled to 10/16 Therapist Name of Therapist: Mora Melo in [place] Therapist's Date of Therapist Appointment: 10/10 Time of Therapist Appointment: 3pm Spine Nurse Name of Spine Nurse: Cameron Snowden Phone Number for Spine Nurse: Post Discharge Appointments Primary Care Physician Name Of Family Doctor/PCP: Maureen Hess Provider Appointment Comment: Not needed at this time. Follow up as normal Contact Information Discharge Discharge Address: [address] [place] [address] Donita ROSE, [place] [id number]
[2024-10-09] MEDS: CHOLECALCIFEROL 125 MCG (5,000 UNITS) TAB PO SCH (09:33)
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
[2024-10-09] MEDS: LITHIUM CARBONATE SLOW REL 300 MG TAB PO SCH (21:09)
--- NOTE | 2024-10-10 15:48 | Psychiatric Progress Note ---
Date of Service October 10, 2024 Impression / Recommendations Impression DANIEL CARDENAS is a 24-year-old woman who currently lives in [place] with her uncle, has a history of borderline personality disorder, depression, anxiety, PTSD, bipolar disorder and disordered eating, and was admitted on 10/01/24 00:57 on a 201 voluntary commitment for SI via overdose on a secluded [place]. Diagnostically consistent with major depressive disorder vs bipolar affective disorder current depressive episode (but less likely given no consistent history of loida/hypomania) as well as eating disorder binge/purge and restricting pattern and borderline personality disorder and PTSD by history. A: Today patient presents a more reactive affect. Improved sleep and mood. Continued constipation. Discussed benefit of intensive outpatient therapy and PTSD therapies. Agreeable to outpatient group therapy at [facility]. Having associated side effect of blurry vision with lithium and we will plan to discontinue given lack of efficacy. MNPR due to safety concerns Overall, I spent a total of 45 minutes on this case including meeting with the patient, reviewing the chart, nursing report, multidisciplinary team meeting, orders, and documentation. (1) Depression with suicidal ideation: (2) Borderline personality disorder: (3) Bipolar disorder: (4) Eating disorder, unspecified: (5) Post traumatic stress disorder (PTSD): (6) GERMAINE (generalized anxiety disorder): Plan 10/10/24: D/c [place]. Miralax 17g one time. Daily fiber supplement. 10/09/2024: Decrease lithium to 150 mg at bedtime. 10/08/2024: -Continue current medications and tx plan 10/07/2024: -Increase clonidine to 0.2mg HS 10/06/2024: -Continue current medications and tx plan 10/05/2024: -Increase fluoxetine to 40mg daily -Utilize safety linens 10/04/2024: -Increase Vraylar to 4.5mg daily with dinner 10/03/2024: -Increase fluoxetine to 20mg daily -Adjust dosing of Vraylar to 3mg daily with dinner 10/02/2024: -Start fluoxetine 10mg daily 10/01/2024: The patient was admitted to the [facility] ([facility] mental health unit) on q15 min checks (behavioral with suicide precautions) for safety. The patient will participate in group, recreational, and milieu therapies and will be offered additional individual and family sessions as clinically appropriate. -Start clonidine 0.1mg HS -Continue prior to admission medications: * [place] carbonate SR 300mg HS * Vraylar 3mg HS (consider dose increase) * Topamax 100mg HS (consider dose increase) -Consider SSRI vs SNRI vs Trintellix vs optimization of doses of current medications after review of symptom questionnaires -Manufacturing Mill[employer] consult due to pattern of restriction and binge/purging -Symptom Questionnaires: Mood Disorder Q, Alejandra BPD, GERMAINE-7, PHQ-9, VICTROIA Inventory Assets Strengths: supportive relationships, willing to get treatment Needs: safety and stabilization, medication adjustment, additional coping skills, increased outpatient services Suicide Risk Level Suicide Risk Level: Moderate (q15 min suicide checks) (SI with plan and intent prior to admission and depression symptoms, but mood improving today, denies SI today, feels safe in the hospital and finds safety linens helpful when SI intens ifies, feels able to alert staff if she needs more support and has hopefulness things can improve and change) Risk Factors Assessment Male: No : Yes Do You Have Access To A Gun?: No Health Problems: No Mental Health Diagnoses: Yes Substance Use Disorders: No Previous Attempt: Yes Family History of Suicide: Yes Previous Psychiatric Hospitalization: Yes Hopelessness: Yes Protective Factors Assessment Employed: Yes Good Rapport with Provider: Yes Interval History Identifying Information DANIEL CARDENAS is a 24-year-old woman who currently lives in [place] with her uncle, has a history of borderline personality disorder, depression, anxiety, PTSD, bipolar disorder and disordered eating, and was admitted on 10/01/24 00:57 on a 201 voluntary commitment for SI via overdose on [place] secluded trail. Chief Complaint Anxiety Review of Systems Sleep Information Total Hours of Sleep: 7 Meal Information Percent Meal Consumed - Breakfast: 0 Percent Meal Consumed - Lunch: 50 Percent Meal Consumed - Dinner: 75 Subjective Subjective Patient was seen & assessed and interval progress reviewed with treatment team nursing and social work The patient reports sleeping better last night with clonidine. Less nightly awakenings. Reports constipation problem at home. Denies any stomach pain. Reports no bowel movement since admission. She denies suicidal ideation. Feels ready to go home tomorrow. Denies having a nightmare overnight. Discussed borderline PD and PTSD and associated treatments and therapies. If she is interested in group therapy. Reports less blurry vision with decrease in lithium. Feels that lithium has not been effective. Reviewed the benefits of adjuvant but the abuse and she denies those benefits have happened. Physical Exam Mental Examination Appearance: Unkempt Eye Contact: Maintains Eye Contact Motor Behavior: Unremarkable Speech: Soft Mood: Depressed Affect: Constricted Thought Process: Intact Hallucinations: None Insight: Poor Judgement: Poor Vital Signs (Past 24 Hours) Last Vital Signs Temp 36.6 C 10/10/24 06:31 Pulse 73 10/10/24 06:32 Resp 16 10/10/24 06:31 BP 101/66 10/10/24 06:32 Pulse Ox 100 10/08/24 20:28 O2 Del Method Room Air 10/08/24 20:28 Results & Data ([facility]) Current Inpatient Medications Current Inpatient Medications: Current Inpatient Medications Acetaminophen (Acetaminophen 325 Mg Tab) 650 mg PO Q4H PRN PRN Reason: Headache or Minor Fever Stop: 10/31/24 01:35 Al Hydrox/Mg Hydrox/Simethicone (Aluminum/Magnesium Susp 30 Ml Udc) 30 ml PO Q4H PRN PRN Reason: GI Upset Stop: 10/31/24 01:35 Bismuth Subsalicylate (Bismuth Subsalicylate 262 Mg Chew) 2 tab PO Q30M PRN PRN Reason: Loose Stool/Diarrhea Stop: 10/31/24 01:35 Cariprazine (Cariprazine Hcl 1.5 Mg Cap) 4.5 mg PO DAILYBD MARCEL Stop: 11/03/24 17:14 Last Admin: 10/09/24 18:22 Dose: 4.5 mg Clonidine HCl (Clonidine Hcl 0.1 Mg Tab) 0.2 mg PO HS MARCEL Stop: 11/06/24 21:59 Last Admin: 10/09/24 21:07 Dose: Not Given Fluoxetine HCl (Fluoxetine Hcl 20 Mg Cap) 40 mg PO QAM MARCEL Stop: 11/05/24 08:59 Last Admin: 10/10/24 09:12 Dose: 40 mg Hydroxyzine HCl (Hydroxyzine Hcl 25 Mg Tab) 50 mg PO HSZ PRN PRN Reason: Insomnia Stop: 10/31/24 01:35 Last Admin: 10/01/24 01:54 Dose: 50 mg Hydroxyzine HCl (Hydroxyzine Hcl 25 Mg Tab) 25 mg PO Q4H PRN PRN Reason: Anxiety Stop: 10/31/24 01:35 Last Admin: 10/09/24 12:43 Dose: 25 mg Magnesium Hydroxide (Magnesium Hydroxide Susp 30 Ml Udc) 30 ml PO DAILY PRN PRN Reason: Constipation Stop: 10/31/24 01:35 Multivitamins/Minerals (Cerovite Adv Formula Tab) 1 tab PO QAM MARCEL Stop: 11/02/24 08:59 Last Admin: 10/10/24 09:12 Dose: 1 tab Nystatin (Nystatin Powder 15gm Btl) 1 appln EXT BID PRN PRN Reason: itching/redness of skin Stop: 10/31/24 14:15 Olanzapine (Olanzapine 2.5 Mg Tab) 2.5 mg PO BID PRN PRN Reason: Agitation Stop: 10/31/24 08:59 Last Admin: 10/02/24 21:37 Dose: 2.5 mg Psyllium Hydrophilic Mucilloid (Psyllium Or Guar Gum Fiber 4gm Packet) 4 gm PO QAM MARCEL Stop: 11/09/24 13:29 Sodium Chloride (Sodium Chloride 0.65% Na Soln 45 Ml (Beckham)) 1 - 2 sprays NA PRN PRN PRN Reason: Nasal Dryness/Congestion Stop: 10/31/24 01:35 Topiramate (Topiramate 100 Mg Tab) 100 mg PO HS MARCEL Stop: 10/31/24 21:59 Last Admin: 10/09/24 21:08 Dose: 100 mg Vitamin D (Cholecalciferol 125 Mcg (5,000 Units) Tab) 125 mcg PO QAM MARCEL Stop: 11/08/24 08:59 Last Admin: 10/10/24 09:12 Dose: 125 mcg Mental Health & Subst Abuse Tx Psychiatrist Name of Psychiatrist: Trae Psychiatrist's Date Of Appointment With Psychiatric Provider: 10/14 Time of Appointment with Psychiatrist: 1:30pm Psychiatric Appointment Comment: Appt from 10/03 rescheduled to 10/16 Therapist Name of Therapist: [facility] in [place]-Dahlia Santamaria Therapist's Date of Therapist Appointment: 10/14 Time of Therapist Appointment: 4 pm Art Critic Name of Art Critic: Cameron Snowden Phone Number for Art Critic: Date of Appointment with Art Critic: 10/15/24 Time of Appointment with Art Critic: 10 Am Case Management Appointment Comment: automotive sales manager will call you on Wednesday 10/11 Post Discharge Appointments Primary Care Physician Name Of Family Doctor/PCP: Maureen Hess Provider Appointment Comment: Not needed at this time. Follow up as normal Contact Information Discharge Discharge Address: [address] [place] [address] Donita [place], [place] [id number]
[2024-10-10] MEDS: POLYETHYLENE (MIRALAX) 17 GM PACK PO ONE (18:10)
[2024-10-10] MEDS: PSYLLIUM or GUAR GUM FIBER 4GM PACKET PO SCH (18:11)
--- NOTE | 2024-10-11 10:08 | Discharge Summary ---
Date of Service October 11, 2024 History of Present Illness Kristopher presents for psychiatric admission at the recommendation of her outpatient therapist for worsening depression and suicidal ideation with plan and intent to take an overdose of old prescriptions on a secluded trail near her old home where she is confident she would not be found for a long time. She had planned to this past weekend but then stayed alive due to "promising my therapist I would keep trying to live". When she saw her therapist on Monday she told her "I didn't know how much more I could take". Her therapist then told her she needed to the go to the hospital and "I had no choice, otherwise she said she'd 302 me". She reports a long history of self-harm via cutting but this has escalated recently to the point that while cutting this weekend she felt ambivalent about the risk of cutting too deep and possibly dying. She reports some stressors including the recent of her uncle's mother two weeks ago, a long work commute, and longstanding mental health challenges but denies any specific precipitants to her increased SI in the last few days. She reports a worsening of depressive symptoms over the past 2 weeks, She has been experiencing significant difficulty with motivation and low energy, causing her to miss work recently and has not been attending to self-care/hygiene. She's been isolating and reports anhedonia, hopelessness, helplessness, poor sleep, low appetite (hardly eating) and low self-worth. She has a long history of chronic intermittent SI for "as long as I can remember" but this also intensified over the last 2-3 days to the point she felt she would act on her plan and "moved it up" from previously wanting to on her birthday in the fall. She also reports longstanding difficulties with eating and appetite, stating she has struggled with eating since elementary school due to bullying and body image issues. She often restricts and will sometimes purge after eating. She endorses anxiety symptoms including panic attacks and severe functional anxiety. She also reports symptoms consistent with PTSD. She is currently prescribed Vraylar, Topamax, and Apollo (300mg). She reports that the medications are not particularly helpful but possibly help a bit with her mood. She's been on them all for at least 2-3 months. A higher dose of Apollo (900mg) previously caused increased aggression and lethargy so she is unwilling to make any dose adjustments to this. She has tried numerous medications in the past, including Zoloft, Lexapro, Effexor, Cymbalta, and Wellbutrin, but does not recall their effectiveness/side effects or why they were stopped. Psychiatric ROS notable for possible history of hypomania but seems like potentially more consistent with borderline personality disorder with mood lability. Denies any history of psychosis, OCD. No current symptoms of loida or psychosis reported. Physical Exam Mental Examination Appearance: Unkempt Eye Contact: Maintains Eye Contact Motor Behavior: Unremarkable Speech: Soft Mood: Depressed Affect: Constricted Thought Process: Intact Hallucinations: None Insight: Poor Judgement: Poor Vital Signs (Past 24 Hours) Last Vital Signs Temp 36.6 C 10/11/24 06:30 Pulse 75 10/11/24 06:31 Resp 16 10/11/24 06:30 BP 95/68 L 10/11/24 06:31 Pulse Ox 100 10/08/24 20:28 O2 Del Method Room Air 10/08/24 20:28 Principal Diagnosis Post Traumatic Stress Disorder Psychiatric Data See daily stay summary. In short, safety was maintained and the patient was cooperative with care. Medication changes included increasing Fluoxetine to 40mg daily, increasing cariprazine to 4.5mg daily, starting clonidine 0.2mg HS, and stopping lithium (blurry vision s/e) and they tolerated this well. A family session was held and safety plan was completed prior to discharge. Patient's SI was resolved, she was future oriented to attend outpatient appointments and attend social gatherings. Plan for her to engage in group therapy for CBT and distress tolerance skills. Day of Discharge Assessment Today the patient voices readiness for discharge. They note improvement in mood and deny thoughts to harm self or others. Thoughts remain organized and they are improved from admission. There is no evidence of psychosis. They agree to take mediations as prescribed and keep follow-up appointments. They are stable for di scharge to outpatient level of care. Overall, I spent a total of 35 minutes with this case including review of chart records, nursing report, review of lab work, direct evaluation of the patient at bedside, counseling the patient, multidisciplinary team meeting, orders, and documentation in the electronic health record. Transition of Care Transition Of Care Record: was reviewed with the patient Advance Directives Advance Directives Information Provided: Yes Advance Directives: No Mental Health Advance Directive: No Advance Directives on File: No Living Will: No Power of Recording Studio Set Up Worker: No Advance Directives Reason:: Declines as Mental Health Visit. Risk Factors Assessment Male: No : Yes Do You Have Access To A Gun?: No Health Problems: No Mental Health Diagnoses: Yes Substance Use Disorders: No Previous Attempt: Yes Family History of Suicide: Yes Previous Psychiatric Hospitalization: Yes Hopelessness: Yes Protective Factors Assessment Employed: Yes Good Rapport with Provider: Yes Discharge Data Lab Results 09/30/24 09/30/24 09/30/24 16:54 17:19 Unknown WBC 10.17 RBC 5.03 Hgb 14.2 Hct 42.3 MCV 84.1 MCH 28.2 MCHC 33.6 RDW Std Deviation 38.6 RDW Coeff of Kallie 12.7 Plt Count 327 MPV 9.9 Immature Gran % (Auto) 0.2 Neut % (Auto) 80.5 Lymph % (Auto) 14.8 Ber[place] % (Auto) 4.1 Eos % (Auto) 0.2 Baso % (Auto) 0.2 Neut # (Auto) 8.18 H Lymph # (Auto) 1.51 [place] # (Auto) 0.42 Eos # (Auto) 0.02 Baso # (Auto) 0.02 Immature Gran # (Auto) 0.02 Sodium 139 Potassium 4.1 Chloride 106 Carbon Dioxide 28 Anion Gap 5 BUN 9 Creatinine 0.69 Est Cr Clr Drug Dosing 145.5 eGFR 125.76 BUN/Creatinine Ratio 13.0 Glucose 104 H Estimat Average Glucose Hemoglobin A1c Calcium 9.3 Total Bilirubin 0.3 AST 13 ALT 16 Alkaline Phosphatase 56 Total Protein 7.5 Albumin 4.3 Globulin 3.2 Albumin/Globulin Ratio 1.3 Triglycerides Cholesterol LDL Cholesterol, Calc VLDL Cholesterol, Calc HDL Cholesterol Cholesterol/HDL Ratio 25-OH Vitamin D Total TSH 1.756 HCG, Qual Negative Urine Color Yellow Urine Appearance Clear Urine pH 6.5 Ur Specific Rowan 1.020 Urine Protein Negative Urine Glucose (UA) Negative Urine Ketones Negative Urine Blood Trace-intact H Urine Nitrite Negative Urine Bilirubin Negative Urine Urobilinogen Negative Ur Leukocyte Esterase Trace H Urine RBC 0-2 Urine WBC 6-10 H Ur Epithelial Cells >20 H Urine Bacteria 1+ H Salicylates < 3.0 L Urine Opiates Screen Neg Ur Methadone, Qual Neg Urine Fentanyl Screen Neg Acetaminophen < 3 L Urine Barbiturates Neg Ur Phencyclidine (PCP) Neg U Amphetamin/Meth Scrn Neg MDMA (Ecstasy) Screen Neg U Benzodiazepines Scrn Neg Apollo < 0.1 L Ur Cocaine Metabolite Neg U Marijuana (THC) Screen Neg Ethyl Alcohol mg/dL < 10.0 SARS-CoV-2, RNA, NAAT NEGATIVE 10/02/24 06:57 WBC RBC Hgb Hct MCV MCH MCHC RDW Std Deviation RDW Coeff of Kallie Plt Count MPV Immature Gran % (Auto) Neut % (Auto) Lymph % (Auto) [place] % (Auto) Eos % (Auto) Baso % (Auto) Neut # (Auto) Lymph # (Auto) [place] # (Auto) Eos # (Auto) Baso # (Auto) Immature Gran # (Auto) Sodium Potassium Chloride Carbon Dioxide Anion Gap BUN Creatinine Est Cr Clr Drug Dosing eGFR BUN/Creatinine Ratio Glucose Estimat Average Glucose 103 Hemoglobin A1c 5.2 Calcium Total Bilirubin AST ALT Alkaline Phosphatase Total Protein Albumin Globulin Albumin/Globulin Ratio Triglycerides 137 Cholesterol 232 H LDL Cholesterol, Calc 170 VLDL Cholesterol, Calc 27 HDL Cholesterol 35 Cholesterol/HDL Ratio 6.6 H 25-OH Vitamin D Total 20.2 L TSH HCG, Qual Urine Color Urine Appearance Urine pH Ur Specific Rowan Urine Protein Urine Glucose (UA) Urine Ketones Urine Blood Urine Nitrite Urine Bilirubin Urine Urobilinogen Ur Leukocyte Esterase Urine RBC Urine WBC Ur Epithelial Cells Urine Bacteria Salicylates Urine Opiates Screen Ur Methadone, Qual Urine Fentanyl Screen Acetaminophen Urine Barbiturates Ur Phencyclidine (PCP) U Amphetamin/Meth Scrn MDMA (Ecstasy) Screen U Benzodiazepines Scrn Apollo 0.2 L Ur Cocaine Metabolite U Marijuana (THC) Screen Ethyl Alcohol mg/dL SARS-CoV-2, RNA, NAAT Hospital Course (1) Depression with suicidal ideation: (2) Borderline personality disorder: (3) Bipolar disorder: (4) Eating disorder, unspecified: (5) Post traumatic stress disorder (PTSD): (6) GERMAINE (generalized anxiety disorder): Plan 10/10/24: D/c Apollo. Miralax 17g one time. Daily fiber supplement. 10/09/2024: Decrease lithium to 150 mg at bedtime. 10/08/2024: -Continue current medications and tx plan 10/07/2024: -Increase clonidine to 0.2mg HS 10/06/2024: -Continue current medications and tx plan 10/05/2024: -Increase fluoxetine to 40mg daily -Utilize safety linens 10/04/2024: -Increase Vraylar to 4.5mg daily with dinner 10/03/2024: -Increase fluoxetine to 20mg daily -Adjust dosing of Vraylar to 3mg daily with dinner 10/02/2024: -Start fluoxetine 10mg daily 10/01/2024: The patient was admitted to the [facility] ([facility] mental health unit) on q15 min checks (behavioral with suicide precautions) for safety. The patient will participate in group, recreational, and milieu therapies and will be offered additional individual and family sessions as clinically appropriate. -Start clonidine 0.1mg HS -Continue prior to admission medications: * Apollo carbonate SR 300mg HS * Vraylar 3mg HS (consider dose increase) * Topamax 100mg HS (consider dose increase) -Consider SSRI vs SNRI vs Trintellix vs optimization of doses of current medications after review of symptom questionnaires -Toolroom Helper consult due to pattern of restriction and binge/purging -Symptom Questionnaires: Mood Disorder Q, Alejandra BPD, GERMAINE-7, PHQ-9, VICTORIA Mental Health & Subst Abuse Tx Psychiatrist Name of Psychiatrist: Trae Psychiatrist's Date Of Appointment With Psychiatric Provider: 10/14 Time of Appointment with Psychiatrist: 1:30pm Psychiatric Appointment Comment: Appt from 10/03 rescheduled to 10/16 Therapist Name of Therapist: [facility] in [place]-Dahlia Santamaria Therapist's Date of Therapist Appointment: 10/14 Time of Therapist Appointment: 4 pm Batch Tester Name of Batch Tester: Cameron Snowden Phone Number for Batch Tester: Date of Appointment with Batch Tester: 10/15/24 Time of Appointment with Batch Tester: 10 Am Case Management Appointment Comment: manager process improvement will call you on Wednesday 10/11 Post Discharge Appointments Primary Care Physician Name Of Family Doctor/PCP: Maureen Hess Provider Appointment Comment: Not needed at this time. Follow up as normal Contact Information Discharge Discharge Address: [address] [place] [address] [place], [place] [address] Discharge Plan Discharge Items Patient Disposition: Home - Self-Care Reason For Visit: UNSPECIFIED MOOD DISORDER Discharge Diagnosis: Borderline personality disorder: Post traumatic stress disorder (PTSD): GERMAINE (generalized anxiety disorder): Major Depressive Disorder Eating disorder, unspecified: Condition on Discharge: Fair Activity: Resume your previous activity Non-emergency contact: Primary Care Provider, Psychiatrist and Therapist Call non-emergency contact if: you have any medication questions and your symptoms worsen Follow-up/Referrals: Natalie Wall [Other] Diet: Regular Addtl Attending Provider Instructions: -Continue Clonidine 0.2mg HS -Continue Fluoxetine 40mg daily -Continue Cariprazine 4.5mg daily -Stop lithium -Continue Topiramate -Engage in group therapy Pending Studies at Discharge: No Stand-Alone Forms: My [employer], Smoking Cessation Medications and DC Order Prescriptions: New cholecalciferol (vitamin D3) 125 mcg (5,000 unit) Tablet 125 mcg PO QAM Qty: 30 0RF hydroxyzine HCl 50 mg tablet 50 mg PO HSZ PRN (Reason: anxiety/insomnia) Qty: 30 0RF fluoxetine 40 mg capsule 40 mg PO QAM Qty: 30 0RF cariprazine 4.5 mg capsule 4.5 mg PO DAILY Qty: 30 0RF clonidine HCl 0.2 mg tablet 0.2 mg PO HS Qty: 30 0RF Continued topiramate 100 mg tablet 100 mg PO HS Discontinued lithium carbonate 300 mg tablet extended release 300 mg PO HS Vraylar 3 mg capsule 3 mg PO HS Discharge Orders: Discharge Order (Routine); Ordered 10/11/24 Ordered By: Chinmay Ge Admission Data Admit Date/Time: 10/01/24 00:57 Attending Provider: Chinmay Ge Admit Provider: Starla Saldana Primary Care Provider: Natalie Wall C[place] [address] D/C day mgmt > 30 min Patient Type Established History Detailed Exam Detailed Medical Decision Making Moderate Complexity Diagnoses Depression with suicidal ideation F32.A; R45.851 Borderline personality disorder F60.3 Bipolar disorder F31.9 Eating disorder, unspecified F50.9 Post traumatic stress disorder (PTSD) F43.10 GERMAINE (generalized anxiety disorder) F41.1
[2024-10-11] MEDS: bisacodyL 5 MG TABEC PO ONE (10:50)
== END 2024-10-11 19:55 | disposition home or self-care (01) | DRG 881 ==
LOC: ED 16:35 → SUATTDRO 10-01 00:57 → 3S 10-01 00:57
DX: F41.9 Anxiety disorder, unspecified; R45.851 Suicidal ideations; F43.10 Post-traumatic stress disorder, unspecified; K59.00 Constipation, unspecified; F60.3 Borderline personality disorder; F32.9 Major depressive disorder, single episode, unspecified; F50.9 Eating disorder, unspecified